=== PATIENT | male | born 1985 | race American Indian/Alaskan Native ===

== ENCOUNTER 2016-09-25 11:53 | Inpatient (IN) | payer OTHER ==
[2016-09-25 12:27] LABS: Basophils % (Auto) 0.7 % (0.0-1.8); Eosinophils % (Auto) 3.7 % (0.0-4.3); Hematocrit 41.2 % (35.5-45.6); Mean Corpuscular HGB Conc 34 % (32-34); Mean Corpuscular Hemoglobin 29 pg (28-32); Mean Corpuscular Volume 85 fl (84-94); Platelet Count 205 K/mm3 (140-440); Red Blood Count 4.84 M/mm3 (3.65-5.03); Red Cell Distribution Width 15.5 % (13.2-15.2); White Blood Count 4.4 K/mm3 (4.5-11.0)
[2016-09-25 13:00] LABS: Alanine Aminotransferase 36 units/L (7-56); Albumin 4.1 g/dL (3.9-5); Albumin/Globulin Ratio 1.3 %; Alkaline Phosphatase 63 units/L (35-129); Anion Gap 18 mmol/L; Blood Urea Nitrogen 9 mg/dL (9-20); Calcium 9.2 mg/dL (8.4-10.2); Carbon Dioxide 24 mmol/L (22-30); Chloride 102.2 mmol/L (98-107); Glucose 103 mg/dL (75-100); Potassium 3.9 mmol/L (3.6-5.0); Sodium 140 mmol/L (137-145); Total Protein 7.3 g/dL (6.3-8.2)
--- NOTE | 2016-09-25 13:06 | Cat Scan Report ---
CT HEAD WITHOUT CONTRAST: 09/25/16 11:53:00 CLINICAL: Syncope and weakness. TECHNIQUE: 2.5-mm noncontrast scans. COMPARISON:None FINDINGS: The ventricles and sulci are normal for age. 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 No mass or mass effect. No hemorrhage, edema or extra-axial collection. The sinuses are clear. Normal orbits and soft tissues. The calvarium and skull base are intact. IMPRESSION: No acute change. 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
[2016-09-25 13:47] LABS: Urine Drugs of Abuse Note Disclamer
[2016-09-25 13:55] LABS: Bilirubin,Urine NEG (Negative); Blood,Urine NEG (Negative); Ketones,Urine NEG (Negative); Leukocyte Esterase,Urine NEG (Negative); Nitrite,Urine NEG (Negative); Protein,Urine <15 mg/dL mg/dL (Negative)
--- NOTE | 2016-09-25 16:55 | History and Physical Report ---
History of Present Illness Chief complaint: I passed out in episcopal History of present illness: 30 YO Male with Obesity, presents to ED for evaluation. Pt states that he passed out. Witness states that the patient essentially "slithered down" at the doorway of their episcopal. EMS notified, and Pt found to be stuporous on exam. He was transported via EMS to [facility] for evaluation. Pt mother states that the patient had a similar such episode several years ago. She cannot quantify how long ago and it actually was. However she states that the patient was initially seen at [facility] in [place] and then transferred to the [facility] and admitted to the intensive care unit for some time. Mother states that pt had "3 baby strokes". Past History Past Medical History: stroke Past Surgical History: No surgical history, Other (reviewed) Social history: single, lives with family. denies: smoking, alcohol abuse, prescription drug abuse Family history: hypertension Medications and Allergies Allergies Allergy/AdvReac Type Severity Reaction Status Date / Time peanut Allergy Severe tightening Verified 09/26/16 08:43 of airway iodine Allergy Unknown Sob, Verified 09/26/16 08:43 tightening of airway Review of Systems All systems: negative Constitutional: other (syncope) Exam - Constitutional Vitals: Temp Pulse Resp BP Pulse Ox 98.4 F 60 21 141/88 100 09/25/16 14:45 09/25/16 14:45 09/25/16 14:45 09/25/16 14:45 09/25/16 14:45 General appearance: Present: mild distress, obese - EENT Eyes: Present: PERRL ENT: hearing intact, clear oral mucosa - Neck Neck: Present: supple, normal ROM - Respiratory Respiratory effort: normal Respiratory: bilateral: CTA - Cardiovascular Heart Sounds: Present: S1 & S2. Absent: rub, click - Extremities Extremities: pulses symmetrical, No edema Peripheral Pulses: within normal limits - Abdominal General gastrointestinal: Present: soft, non-tender, non-distended, normal bowel sounds Male genitourinary: Present: normal - Integumentary Integumentary: Present: clear, warm, dry - Musculoskeletal Musculoskeletal: gait normal, strength equal bilaterally - Psychiatric Psychiatric: appropriate mood/affect, intact judgment & insight - Neurologic Neurologic: CNII-XII intact, moves all extremities, other (lethargic on exam) Results - Labs CBC & Chem 7: 09/25/16 12:14 09/25/16 12:14 Labs: Abnormal lab results 09/25/16 09/25/16 Range/Units 12:14 12:14 WBC 4.4 L (4.5-11.0) K/mm3 RDW 15.5 H (13.2-15.2) % Glucose 103 H (75-100) mg/dL Assessment and Plan - Patient Problems (1) Syncope and collapse Current Visit: Yes Status: Acute Plan to address problem: Serial cardiac enzyme, ekg, telemetry, echo, supportive care. CArdiology consulted, (2) Obesity Current Visit: Yes Status: Acute Qualifiers: Obesity type: O Obesity severity: O Plan to address problem: Pt counsled regarding increased physical activity, balanced diet (3) HTN (hypertension) Current Visit: Yes Status: Acute Qualifiers: Hypertension type: H Plan to address problem: monitor bp q shift, continue current therapy (4) CVA (cerebral vascular accident) Current Visit: Yes Status: Resolved Qualifiers: CVA mechanism: C Precerebral and cerebral artery: P Laterality of affected vessel: L Plan to address problem: Records request from previous hospital. Pt family unsure of previous diagnosis. (5) Atypical chest pain Current Visit: Yes Status: Acute Plan to address problem: serial caridac enzymes, ekg, telemetry, cardiology consulted. (6) DVT prophylaxis Current Visit: Yes Status: Acute
--- NOTE | 2016-09-25 16:55 | History and Physical Report ---
Medications and Allergies Allergies Allergy/AdvReac Type Severity Reaction Status Date / Time No Known Allergies Allergy Unverified 09/25/16 12:04 Exam - Constitutional Vitals: Temp Pulse Resp BP Pulse Ox 98.4 F 60 21 141/88 100 09/25/16 14:45 09/25/16 14:45 09/25/16 14:45 09/25/16 14:45 09/25/16 14:45 Results - Labs CBC & Chem 7: 09/25/16 12:14 09/25/16 12:14 Labs: Abnormal lab results 09/25/16 09/25/16 Range/Units 12:14 12:14 WBC 4.4 L (4.5-11.0) K/mm3 RDW 15.5 H (13.2-15.2) % Glucose 103 H (75-100) mg/dL
[2016-09-25] MEDS ORDERED: DULCOLAX PR PRN (17:23)
[2016-09-25] MEDS ORDERED: ZOFRAN IV PRN (17:23)
[2016-09-25] MEDS ORDERED: DUONEB 0.5 MG-3 MG/3 ML SOLN IH PRN (17:23)
[2016-09-25] MEDS ORDERED: MILK OF MAGNESIA PO PRN (17:23)
[2016-09-25] MEDS ORDERED: SODIUM CHLORIDE FLUSH SYRINGE 10 ML IV PRN (17:23)
[2016-09-25] MEDS ORDERED: TYLENOL PO PRN (17:23)
[2016-09-25] MEDS ORDERED: PROVENTIL IH PRN (17:32)
[2016-09-25 17:34] LABS: Creatine Kinase MB 2.2 ng/mL (0.0-4.0)
--- NOTE | 2016-09-25 19:17 | Emergency Department Report ---
ED General Adult HPI - General Chief complaint: Syncope Stated complaint: DIZZINESS Time Seen by Provider: 09/25/16 15:18 Source: patient Mode of arrival: Wheelchair Limitations: No Limitations - History of Present Illness Initial comments: Patient was brought to this facility after an apparent syncopal episode. I am told by a non-direct witness I believe a family member that was not there that she was told that the patient essentially "slithered down" at the doorway of their [facility]ats[facility]. He was transported via EMS. Patient tells me that he doesn't remember passing out nor does she remember transport to this facility. I do not have the patient's prehospital care report at this time. However I was not notified of a patient who was obtunded and lethargic stuporous or transported to the facility with altered mental status. I'm surprised to hear that the patient recalls nothing concerning his transport until he arrived in the emergency department. In any case there was no witnessed seizure or shaking movement. Patient did not lose control of his bowels or bladder. He did not bite his tongue. He suffered no injury. Apparently at triage she did complain of some vague nonpleuritic left sided and nonradiating chest pain. Had resolved at the time of my encounter. Patient denied dyspnea sweating nausea or any other associated symptoms. He denied any focal neurological change. He appears to be a very poor historian. Patient's family member states that they [place] and have no primary care provider. She tells me that the patient had a similar such episode several years ago. She cannot quantify how long ago and it actually was. However she states that the patient was initially seen at [facility] in [place] and then transferred to the [facility]. She states that he was in the intensive care unit for some time. She states that he had "3 baby strokes". The patient is currently not on aspirin or any prescribed medication. The lady that is with the patient states that he appears to have some memory deficit chronically since his stroke. -: Gradual Location: chest Radiation: non-radiation Quality: aching Consistency: now resolved Improves with: none Worsens with: none Associated Symptoms: denies other symptoms Treatments Prior to Arrival: none - Related Data Allergies Allergy/AdvReac Type Severity Reaction Status Date / Time No Known Allergies Allergy Unverified 09/25/16 12:04 ED Review of Systems ROS: Stated complaint: DIZZINESS Other details as noted in HPI Constitutional: denies: chills, fever Eyes: denies: eye pain, eye discharge, vision change ENT: denies: ear pain, throat pain Respiratory: denies: cough, shortness of breath, wheezing Cardiovascular: chest pain, syncope. denies: palpitations Endocrine: no symptoms reported Gastrointestinal: denies: abdominal pain, nausea, diarrhea Genitourinary: denies: urgency, dysuria Musculoskeletal: denies: back pain, joint swelling, arthralgia Skin: denies: rash, lesions Neurological: denies: headache, weakness, paresthesias Psychiatric: denies: anxiety, depression Hematological/Lymphatic: denies: easy bleeding, easy bruising ED Past Medical Hx - Past Medical History Previous Medical History?: No Hx CVA: Yes (See above HPI) - Surgical History Past Surgical History?: No - Social History Smoking Status: Unknown if ever smoked Substance Use Type: None ED Physical Exam - General Limitations: No Limitations General appearance: alert, in no apparent distress - Head Head exam: Present: atraumatic, normocephalic - Eye Eye exam: Present: normal appearance. Absent: scleral icterus - ENT ENT exam: Present: normal exam, mucous membranes moist - Neck Neck exam: Present: normal inspection. Absent: tenderness, meningismus - Respiratory Respiratory exam: Present: normal lung sounds bilaterally. Absent: respiratory distress - Cardiovascular Cardiovascular Exam: Present: regular rate, normal rhythm. Absent: systolic murmur, diastolic murmur, rubs, gallop - GI/Abdominal GI/Abdominal exam: Present: soft, normal bowel sounds. Absent: distended, tenderness, guarding, rebound, rigid - Rectal Rectal exam: Present: deferred - Extremities Exam Extremities exam: Present: normal inspection - Back Exam Back exam: Present: normal inspection - Neurological Exam Neurological exam: Present: alert, oriented X3, CN II-XII intact. Absent: motor sensory deficit - Psychiatric Psychiatric exam: Present: normal affect, normal mood - Skin Skin exam: Present: warm, dry, intact, normal color. Absent: rash ED Course Vital Signs 09/25/16 09/25/16 09/25/16 11:58 14:45 17:53 Temperature 98.3 F 98.4 F Pulse Rate 79 60 Respiratory 18 21 16 Rate Blood Pressure 161/105 Blood Pressure 141/88 [Left] O2 Sat by Pulse 99 100 Oximetry - Reevaluation(s) Reevaluation #1: Patient has no dyspnea, no cough. Apparently he did have some vague chest pain. He had a syncopal episode or an absence episode of some sort. There is no indication of ACS or pulmonary embolism. I will leave the further workup of the patient's chest pain up to the hospital staff. Patient was admitted in stable condition for further evaluation. I found no evidence of CVA or any indication for thrombolytic. 09/25/16 19:24 ED Medical Decision Making - Lab Data Result diagrams: 09/25/16 12:14 09/25/16 12:14 - EKG Data -: EKG Interpreted by Me EKG shows normal: sinus rhythm, axis, intervals, QRS complexes, ST-T waves Rate: normal - EKG Data Interpretation: normal EKG - Radiology Data Radiology results: report reviewed Patient has negative cisterna magna which the radiologist states is an incidental finding. No acute finding. Critical care attestation.: If time is entered above; I have spent that time in minutes in the direct care of this critically ill patient, excluding procedure time. ED Disposition Clinical Impression: Atypical chest pain, Akhil cisterna magna Syncope Qualifiers: Syncope type: unspecified Qualified Code(s): R55 - Syncope and collapse Disposition: - OP ADMIT IP TO THIS HOSP Is pt being admited?: Yes Does the pt Need Aspirin: Yes Condition: Stable Instructions: Syncope (ED), Chest Pain (ED) Referrals: PRIMARY CARE, [Primary Care Provider] - 3-5 Days Time of Disposition: 19:28
--- NOTE | 2016-09-25 20:11 | XRay Report ---
FINAL REPORT EXAM: XR CHEST 1V AP HISTORY: hypertension COMPARISON: None available. FINDINGS: Frontal view(s) of the chest obtained. Heart upper limits normal in size and accentuated by AP technique and shallow inspiration. No gross consolidation or effusion. No pneumothorax. IMPRESSION: Heart upper limits normal in size. Lungs are grossly clear.
[2016-09-25 23:01] LABS: Creatine Kinase MB 4.7 ng/mL (0.0-4.0)
[2016-09-25 23:02] LABS: Creatine Kinase 662 units/L (55-170)
[2016-09-25] MEDS ORDERED: MORPHINE IV PRN ×2 (23:49→23:58)
[2016-09-25 23:58] LABS: Creatine Kinase MB 1.7 ng/mL (0.0-4.0)
[2016-09-26 00:01] LABS: Creatine Kinase 242 units/L (55-170)
--- NOTE | 2016-09-26 13:09 | Consultation ---
<OMAR BRADY - Last Filed: 09/26/16 13:04> History of Present Illness Consult date: 09/26/16 Consult reason: syncope History of present illness: This is a 30yr old admitted with syncope. Patient reports he felt dizzy when walking and when he came to himself he was in the ER. While in the ER, patient complained on chest pain, fatigue and continued dizziness. No acute findings on his presenting ECG. Head CT reports tangela cisterna magna but no acute findings. Cardiology consultation requested for further evaluation. Past History Past Surgical History: No surgical history Social history: single, lives with family. denies: smoking, alcohol abuse, prescription drug abuse Family history: hypertension Medications and Allergies Allergies Allergy/AdvReac Type Severity Reaction Status Date / Time peanut Allergy Severe tightening Verified 09/26/16 08:43 of airway iodine Allergy Unknown Sob, Verified 09/26/16 08:43 tightening of airway Active Meds: Active Medications Acetaminophen (Tylenol) 650 mg PO Q4H PRN PRN Reason: Pain MILD(1-3)/Fever >100.5/PHILLIPS Last Admin: 09/25/16 17:53 Dose: 650 mg Albuterol (Proventil) 2.5 mg IH Q4HRT PRN PRN Reason: Shortness Of Breath Bisacodyl (Dulcolax) 10 mg [place] QDAY PRN PRN Reason: Constipation unrelieved by MOM Magnesium Hydroxide (Milk Of Magnesia) 30 ml PO Q4H PRN PRN Reason: Constipation Morphine Sulfate (Morphine) 2 mg IV Q4H PRN PRN Reason: Pain, Moderate (4-6) Last Admin: 09/26/16 00:19 Dose: 2 mg Ondansetron HCl (Zofran) 4 mg IV Q8H PRN PRN Reason: N/V unrelieved by Reglan Sodium Chloride (Sodium Chloride Flush Syringe 10 Ml) 10 ml IV PRN PRN PRN Reason: LINE FLUSH Physical Examination Vital Signs Temp Pulse Resp BP Pulse Ox 98.3 F 79 18 161/105 99 09/25/16 11:58 09/25/16 11:58 09/25/16 11:58 09/25/16 11:58 09/25/16 11:58 General appearance: no acute distress HEENT: Positive: PERRL Neck: Positive: trachea midline Cardiac: Positive: Reg Rate and Rhythm Results 09/25/16 12:14 09/25/16 12:14 Cardiac Enzymes 09/25/16 09/25/16 Range/Units 21:40 23:21 CK-MB (CK-2) 4.7 H 1.7 (0.0-4.0) ng/mL Lipids 09/25/16 Range/Units Unknown Triglycerides 124 (2-149) mg/dL Cholesterol 136 (50-199) mg/dL HDL Cholesterol 33 L (40-59) mg/dL Cholesterol/HDL Ratio 4.12 % Assessment and Plan Syncope Plan: Echocardiogram for LVEF assessment. Check a TSH, free T4. <IKE LARA - Last Filed: 09/26/16 16:13> Medications and Allergies Active Meds: Active Medications Acetaminophen (Tylenol) 650 mg PO Q4H PRN PRN Reason: Pain MILD(1-3)/Fever >100.5/PHILLIPS Last Admin: 09/25/16 17:53 Dose: 650 mg Albuterol (Proventil) 2.5 mg IH Q4HRT PRN PRN Reason: Shortness Of Breath Bisacodyl (Dulcolax) 10 mg [place] QDAY PRN PRN Reason: Constipation unrelieved by MOM Magnesium Hydroxide (Milk Of Magnesia) 30 ml PO Q4H PRN PRN Reason: Constipation Morphine Sulfate (Morphine) 2 mg IV Q4H PRN PRN Reason: Pain, Moderate (4-6) Last Admin: 09/26/16 00:19 Dose: 2 mg Ondansetron HCl (Zofran) 4 mg IV Q8H PRN PRN Reason: N/V unrelieved by Reglan Sodium Chloride (Sodium Chloride Flush Syringe 10 Ml) 10 ml IV PRN PRN PRN Reason: LINE FLUSH Physical Examination Vital Signs Temp Pulse Resp BP Pulse Ox 98.3 F 79 18 161/105 99 09/25/16 11:58 09/25/16 11:58 09/25/16 11:58 09/25/16 11:58 09/25/16 11:58 Results 09/25/16 12:14 09/25/16 12:14 Cardiac Enzymes 09/25/16 09/25/16 Range/Units 21:40 23:21 CK-MB (CK-2) 4.7 H 1.7 (0.0-4.0) ng/mL Lipids 09/25/16 Range/Units Unknown Triglycerides 124 (2-149) mg/dL Cholesterol 136 (50-199) mg/dL HDL Cholesterol 33 L (40-59) mg/dL Cholesterol/HDL Ratio 4.12 % Assessment and Plan No significant abnormality on labs EKG shows normal sinus rhythm with nonspecific STTW changes Telemetry shows sinus rhythm Neurology consult pending.
--- NOTE | 2016-09-26 13:38 | Admit Criteria Form ---
Admission Criteria Documentation: SYNCOPE Clinical Indications for Admission to Inpatient Care ( Place 'X' for any and all applicable criteria): Admission is indicated for syncope and ANY ONE of the following (1)(2)(3)(4)(5) (6)(7) : [X]I. Inpatient admission required rather than observation care (Also use Syncope: Observation Care Criteria as appropriate) because of ANY ONE of the following: [ ]a) Hemodynamic instability that is severe or persistent [ ]b) Cardiac arrhythmias of immediate concern identified or strongly suspected (eg, needs electrophysiologic study) [ ]c) Acute coronary syndrome identified (Also use Myocardial Infarction or Angina Criteria form ) [ ]d) Structural cardiac disorder (eg, aortic stenosis) suspected as cause that requires immediate correction [ ]e) Respiratory symptoms (eg, dyspnea, tachypnea) that are severe or persistent [ ]f) Neurologic signs or symptoms that are severe or persistent ( eg, stroke, seizures, altered mental status) [ ]g) Severe electrolyte abnormalities requiring inpatient care [ ]h) Supplemental oxygen or respiratory treatment for over 24 hrs that are performable only in acute inpatient setting [ ]i) IV fluid to replace significant ongoing (eg, for over 24 hrs ) losses (>3 L/m2 per day) [ ]j) Continuous intravenous infusion of anticoagulation, platelet inhibitor, vasoactive, or antiarrhythmic medication(15)(16) [ ]k) Pulmonary artery catheter monitoring [ ]l) Temporary pacemaker placement(17) [ ]m) Emergent cardioversion(18) [X]n) Other conditions, treatment or monitoring requiring inpatient admission [ ]II. Suspicion of imminently dangerous cause (eg, rare causes like pericardial tamponade, pulmonary embolism) [ ]III. Syncope causing severe injury requiring hospitalization Extended stay beyond goal length of stay may be needed for(28) [ ]a) Dangerous arrhythmia(15)(23)(27)(29) [ ]b) Myocardial ischemia [ ]c) Seizure disorder [ ]d) Syncope-related injuries The original [employer] content created by [employer] has been revised. The portions of the content which have been revised are identified through the use of italic text or in bold, and [employer] has neither reviewed nor approved the modified material. All other unmodified content is copyright [employer] [facility]. Please see references footnoted in the original [facility] edition 2016 Admission Criteria Met: Yes
--- NOTE | 2016-09-26 14:56 | Consultation ---
History of Present Illness Consult date: 09/26/16 Requesting physician: VIRGEN CALVO Reason for Consult: syncope Chief complaint: passed out History of present illness: 30 YO M Hx several years ago according to mother as documented of "3 baby strokes" w/ residual memory difficulty that pt did not reflect upon not on AP/ statin as he is on no meds @ home who had syncopal episode 09/25. He felt lightheaded and faint and when he stood to get some air, he lost consciosuness. Pt denies tongue bite/incontinence/prolonged confusion or focal numbness/ tingling/weakness or inability to speak when returned to consciousness. There were no clear aggravating, relieving or temporal factors. Severity is such to cause LOC. Pt feels @ his baseline. ] Past History Past Medical History: stroke Past Surgical History: No surgical history Social history: single, lives with family. denies: smoking, alcohol abuse, prescription drug abuse Family history: hypertension Medications and Allergies Allergies Allergy/AdvReac Type Severity Reaction Status Date / Time peanut Allergy Severe tightening Verified 09/26/16 08:43 of airway iodine Allergy Unknown Sob, Verified 09/26/16 08:43 tightening of airway Active Meds: Active Medications Acetaminophen (Tylenol) 650 mg PO Q4H PRN PRN Reason: Pain MILD(1-3)/Fever >100.5/PHILLIPS Last Admin: 09/25/16 17:53 Dose: 650 mg Albuterol (Proventil) 2.5 mg IH Q4HRT PRN PRN Reason: Shortness Of Breath Bisacodyl (Dulcolax) 10 mg [place] QDAY PRN PRN Reason: Constipation unrelieved by MOM Magnesium Hydroxide (Milk Of Magnesia) 30 ml PO Q4H PRN PRN Reason: Constipation Morphine Sulfate (Morphine) 2 mg IV Q4H PRN PRN Reason: Pain, Moderate (4-6) Last Admin: 09/26/16 00:19 Dose: 2 mg Ondansetron HCl (Zofran) 4 mg IV Q8H PRN PRN Reason: N/V unrelieved by Reglan Sodium Chloride (Sodium Chloride Flush Syringe 10 Ml) 10 ml IV PRN PRN PRN Reason: LINE FLUSH Review of Systems All systems: negative Neurological: syncope, confusion (resolved), no paralysis, no weakness, no parathesias, no numbness, no seizures, no headaches, no convulsions, no change in speech, no gait dysfunction, no motor disturbance, no sensory deficit Physical Examination - Vital Signs Vital Signs: Vital Signs Temp Pulse Resp BP Pulse Ox 98.3 F 79 18 161/105 99 09/25/16 11:58 09/25/16 11:58 09/25/16 11:58 09/25/16 11:58 09/25/16 11:58 - Constitutional General appearance: comfortable - EENT EENT: Present: ATNC, PERRL, mucous membranes moist, hearing intact, vision intact - Respiratory Respiratory: Present: chest non-tender, normal breath sounds, no respiratory distress - Cardiovascular Cardiovascular: Present: regular rate Extremities: Present: no peripheral edema bilatateraly, no clubbing, cyanosis, no inflammation, no ischemia or petechiae - Gastrointestinal Gastrointestinal: Present: normoactive bowel sounds, soft, non-distended - Integumentary Integumentary: Present: normal - Neurologic Cranial nerve examination: PERRL, EOMI, VFF, V1/V2/V3 grossly intact, face symmetric, tongue midline, intact, intact shoulder shrug, Intact Vestibulo- ocular r, intact corneal reflex, normal palatal elevation Speech examination: intact Sensorimotor examination: intact Motor examination - right side: 5/5: biceps, triceps, wrist flexion, wrist extension, shipping clerk packing, hip flexors, knee extensors, dorsiflexion, toe extension (EHL) , plantarflexion Motor examination - left side: 5/5: biceps, triceps, wrist flexion, wrist extension, shipping clerk packing, hip flexors, knee extensors, dorsiflexion, toe extension (EHL) , plantarflexion Detailed sensory examination: intact, light touch, temperature Reflex and gait examination: intact Reflexes: 2+: ankle, bicep, knee, tricep - Musculoskeletal Musculoskeletal: Present: no fluid collection, no pain, normal range of motion - Psychiatric Psychiatric: Present: mood/affect appropriate, cooperative Results - Laboratory Findings CBC and BMP: 09/25/16 12:14 09/25/16 12:14 Abnormal Lab Findings: Abnormal Labs 09/25/16 09/25/16 09/25/16 21:40 23:21 Unknown Total Creatine Kinase 662 H 242 H CK-MB (CK-2) 4.7 H HDL Cholesterol 33 L Assessment and Plan 30 YO M Hx several years ago according to mother as documented of "3 baby strokes" w/ residual memory difficulty that pt did not reflect upon not on AP/ statin who p/w classic pre monitory presyncopal syndrome followed by LOC when he arose from seated position and w/o premonitory epileptiform activity e.g aura /automatism, tongue bite, incontinence, motor convulsive activity or clear post episode residual deficit e.g. post ictal state to suggest seizure. Current neuro exam is normal fully intact w/o deficits/focality. I suspect orthostatic syncope. CTH neg. There is no subjective or objective evidence to suggest seizure. Plan and Recommendation: 1. Telemetry bed w/ Q4 hour neuro checks 2. WIll obtain MRI Brain +/- Shola and MRA head to assess considering prior Hx 3. Labs: Serum/Urine Tox, UA/UCx, Electrolytes especially Na, Ca, Mg, and Glucose, TSH, 4. AED therapy: No clear indication for AED therapy 5. Orthostatic vital signs 6. Conservative management e.g. tapering of BP meds, Myron Hose, encourage PO intake, etc 7. With seemingly clear etiology for syncope there is no clear grounds for driving privilege withdrawal @ this time. However for future reference I have advised Pt of [place] driving regulations: report date of presumed Seizure/ unexplained loss of consciousness/awareness spell to DMV, refrain from operating a motor vehicle for 6 months after this date, and avoid unsupervised activity particularly around water or heights
--- NOTE | 2016-09-26 16:03 | Progress Note ---
Assessment and Plan Assessment and plan: 30-year-old -[place] male presented to the emergency department after syncopal episode, that happened when he arose from a sitting position. Patient has history of syncopal episode as a child. Per chart review his mother claimed he has 3 strokes as a child and after that he has memory problems. Patient is not on any medications. Syncope, disequilibrium; Vasovagal versus orthostatic - We'll do orthostatic vital signs - CT head was negative for acute intracranial process - Neurology was consulted and recommended MRI/MRA head - Cardiology consulted and recommended echo DVT prophylaxis Lovenox Disposition Likely tomorrow after he finished his work work up. History Interval history: Patient was seen and evaluated this morning, patient denied loss of consciousness or any seizure activity after admission. Hospitalist Physical - Physical exam Narrative exam: Not in cardiopulmonary distress. The patient appeared well nourished and normally developed. Vital signs as documented. Head exam is unremarkable. No scleral icterus . Neck is without jugular venous distension, thyromegaly, or carotid bruits. Lungs are clear to auscultation. Cardiac exam reveals regular rate and Rhythm. First and second heart sounds normal. No murmurs, rubs or gallops. Abdominal exam reveals normal bowel sounds, no masses, no organomegaly and no aortic enlargement. Extremities are nonedematous and both femoral and pedal pulses are normal. SET BUILDER: Alert and oriented 3. No focal weakness. - Constitutional Vitals: Temp Pulse Resp BP Pulse Ox 97.8 F 66 18 140/81 96 09/26/16 12:50 09/26/16 12:50 09/26/16 12:50 09/26/16 12:50 09/26/16 05:23 General appearance: Present: no acute distress Results - Labs CBC & Chem 7: 09/25/16 12:14 09/25/16 12:14 Labs: Laboratory Last Values WBC 4.4 K/mm3 (4.5-11.0) L 09/25/16 12:14 RBC 4.84 M/mm3 (3.65-5.03) 09/25/16 12:14 Hgb 14.0 gm/dl (11.8-15.2) 09/25/16 12:14 Hct 41.2 % (35.5-45.6) 09/25/16 12:14 MCV 85 fl (84-94) 09/25/16 12:14 MCH 29 pg (28-32) 09/25/16 12:14 MCHC 34 % (32-34) 09/25/16 12:14 RDW 15.5 % (13.2-15.2) H 09/25/16 12:14 Plt Count 205 K/mm3 (140-440) 09/25/16 12:14 Lymph % (Auto) 33.4 % (13.4-35.0) 09/25/16 12:14 Fergus % (Auto) 7.3 % (0.0-7.3) 09/25/16 12:14 Eos % (Auto) 3.7 % (0.0-4.3) 09/25/16 12:14 Baso % (Auto) 0.7 % (0.0-1.8) 09/25/16 12:14 Lymph # 1.5 K/mm3 (1.2-5.4) 09/25/16 12:14 Fergus # 0.3 K/mm3 (0.0-0.8) 09/25/16 12:14 Eos # 0.2 K/mm3 (0.0-0.4) 09/25/16 12:14 Baso # 0.0 K/mm3 (0.0-0.1) 09/25/16 12:14 Seg Neutrophils % 54.9 % (40.0-70.0) 09/25/16 12:14 Seg Neutrophils # 2.4 K/mm3 (1.8-7.7) 09/25/16 12:14 Sodium 140 mmol/L (137-145) 09/25/16 12:14 Potassium 3.9 mmol/L (3.6-5.0) 09/25/16 12:14 Chloride 102.2 mmol/L (98-107) 09/25/16 12:14 Carbon Dioxide 24 mmol/L (22-30) 09/25/16 12:14 Anion Gap 18 mmol/L 09/25/16 12:14 BUN 9 mg/dL (9-20) 09/25/16 12:14 Creatinine 1.0 mg/dL (0.8-1.5) 09/25/16 12:14 Estimated GFR > 60 ml/min 09/25/16 12:14 BUN/Creatinine Ratio 9.00 % 09/25/16 12:14 Glucose 103 mg/dL (75-100) H 09/25/16 12:14 POC Glucose 106 (70-105) H 09/25/16 12:08 Lactic Acid 0.80 mmol/L (0.7-2.0) 09/25/16 14:49 Calcium 9.2 mg/dL (8.4-10.2) 09/25/16 12:14 Magnesium 1.70 mg/dL (1.7-2.3) 09/25/16 12:14 Total Bilirubin 0.40 mg/dL (0.1-1.2) 09/25/16 12:14 AST 25 units/L (5-40) 09/25/16 12:14 ALT 36 units/L (7-56) 09/25/16 12:14 Alkaline Phosphatase 63 units/L (35-129) 09/25/16 12:14 Total Creatine Kinase 242 units/L (55-170) H 09/25/16 23:21 CK-MB (CK-2) 1.7 ng/mL (0.0-4.0) 09/25/16 23:21 CK-MB (CK-2) Rel Index 0.7 (0-4) 09/25/16 23:21 Troponin T < 0.010 ng/mL (0.00-0.029) 09/25/16 23:21 Total Protein 7.3 g/dL (6.3-8.2) 09/25/16 12:14 Albumin 4.1 g/dL (3.9-5) 09/25/16 12:14 Albumin/Globulin Ratio 1.3 % 09/25/16 12:14 Triglycerides 124 mg/dL (2-149) 09/25/16 Unknown Cholesterol 136 mg/dL (50-199) 09/25/16 Unknown LDL Cholesterol Direct 79 mg/dL (50-130) 09/25/16 Unknown HDL Cholesterol 33 mg/dL (40-59) L 09/25/16 Unknown Cholesterol/HDL Ratio 4.12 % 09/25/16 Unknown Urine Color Yellow (Yellow) 09/25/16 13:36 Urine Turbidity Clear (Clear) 09/25/16 13:36 Urine pH 6.0 (5.0-7.0) 09/25/16 13:36 Ur Specific Chandler 1.015 (1.003-1.030) 09/25/16 13:36 Urine Protein <15 mg/dl mg/dL (Negative) 09/25/16 13:36 Urine Glucose (UA) Neg mg/dL (Negative) 09/25/16 13:36 Urine Ketones Neg mg/dL (Negative) 09/25/16 13:36 Urine Blood Neg (Negative) 09/25/16 13:36 Urine Nitrite Neg (Negative) 09/25/16 13:36 Urine Bilirubin Neg (Negative) 09/25/16 13:36 Urine Urobilinogen 2.0 mg/dL (<2.0) 09/25/16 13:36 Ur Leukocyte Esterase Neg (Negative) 09/25/16 13:36 Urine WBC (Auto) 1.0 /HPF (0.0-6.0) 09/25/16 13:36 Urine RBC (Auto) 4.0 /HPF (0.0-6.0) 09/25/16 13:36 Hyaline Casts 1 /LPF 09/25/16 13:36 Urine Opiates Screen Presumptive negative 09/25/16 13:36 Urine Methadone Screen Presumptive negative 09/25/16 13:36 Ur Barbiturates Screen Presumptive negative 09/25/16 13:36 Ur Phencyclidine Scrn Presumptive negative 09/25/16 13:36 Ur Amphetamines Screen Presumptive negative 09/25/16 13:36 U Benzodiazepines Scrn Presumptive negative 09/25/16 13:36 Urine Cocaine Screen Presumptive negative 09/25/16 13:36 U Marijuana (THC) Screen Presumptive negative 09/25/16 13:36 Drugs of Abuse Note Disclamer 09/25/16 13:36 - Imaging and Cardiology CT Scan - head: report reviewed (No no acute intracranial abnormality), image reviewed
[2016-09-26] MEDS ORDERED: LOVENOX SUB-Q SCH (22:00)
[2016-09-27 08:36] LABS: Anion Gap 15 mmol/L; BUN/Creatinine Ratio 9.16; Blood Urea Nitrogen 11 mg/dL (9-20); Carbon Dioxide 28 mmol/L (22-30); Chloride 99.5 mmol/L (98-107); Glucose 100 mg/dL (75-100); Potassium 3.8 mmol/L (3.6-5.0); Sodium 139 mmol/L (137-145)
[2016-09-27 08:58] VITALS: BP 132/80
--- NOTE | 2016-09-27 10:27 | Progress Note ---
Assessment and Plan Syncope LVEF 50-55% No arrhythmias on tele recorded Normal ECG Normal Dominique Recommendations: No further cardiac work-up needed May go home and follow-up as outpatient Subjective Date of service: 09/27/16 Principal diagnosis: Syncope Interval history: No events overnight. Patient denies chest pain or shortness of breath. No events on tele. He is able to ambulate without difficulty Objective Vital Signs Temp Pulse Pulse Pulse Resp BP Pulse Ox 09/27/16 09:37 99 09/27/16 08:57 98.4 F 64 64 20 132/80 09/27/16 07:29 18 09/27/16 06:03 98.1 F 0 L 61 20 122/67 99 09/27/16 05:40 61 09/27/16 00:56 98.2 F 0 L 60 20 133/78 100 09/26/16 21:20 99 09/26/16 21:05 98.8 F 0 L 65 20 143/84 98 09/26/16 16:57 98.5 F 67 18 137/90 09/26/16 12:50 97.8 F 66 18 140/81 - Physical Examination HEENT: Positive: PERRL Neck: Positive: trachea midline Cardiac: Positive: Reg Rate and Rhythm Lungs: Positive: Normal Exam - Labs and Meds Comprehensive Metabolic Panel 09/27/16 Range/Units 06:49 Sodium 139 (137-145) mmol/L Potassium 3.8 (3.6-5.0) mmol/L Chloride 99.5 (98-107) mmol/L Carbon Dioxide 28 (22-30) mmol/L BUN 11 (9-20) mg/dL Creatinine 1.2 (0.8-1.5) mg/dL Glucose 100 (75-100) mg/dL Calcium 9.0 (8.4-10.2) mg/dL
--- NOTE | 2016-09-27 12:26 | Magnetic Resonance Report ---
MRI of the brain with and without contrast. History: Loss of consciousness. Procedure: Routine brain protocol with and without contrast. Findings: The cisterna magna is enlarged. The posterior fossa is otherwise normal. The ventricles are normal in size and contour. There are no masses or extra-axial collections. The hansen-white matter junction is normal. There is no restricted diffusion. After gadolinium injection, there no abnormal areas of contrast enhancement. The pituitary gland is normal. The visualized extracranial structures are unremarkable. Impression: No significant findings. Akhil-cisterna magna is noted.
--- NOTE | 2016-09-27 12:27 | Magnetic Resonance Report ---
MRA of the [place] of [place]. History: Syncope. Procedure: 3-D [id number] technique. Findings: The visualized distal internal carotid arteries are normal. The anterior and middle cerebral arteries and branches are unremarkable. The right vertebral artery is dominant. The basilar artery and posterior cerebral's are unremarkable. Impression: Normal study.
--- NOTE | 2016-09-27 12:44 | Event Note ---
Date: 09/27/16 MRI Brain and MRA Head reviewed and normal. 30 YO M Hx several years ago according to mother as documented of "3 baby strokes" w/ residual memory difficulty that pt did not reflect upon not on AP/ statin who p/w classic pre monitory presyncopal syndrome followed by LOC when he arose from seated position and w/o premonitory epileptiform activity e.g aura /automatism, tongue bite, incontinence, motor convulsive activity or clear post episode residual deficit e.g. post ictal state to suggest seizure. Current neuro exam is normal fully intact w/o deficits/focality. I suspect orthostatic syncope. CTH neg. There is no subjective or objective evidence to suggest seizure. Plan and Recommendation: 1. Telemetry bed w/ Q4 hour neuro checks 2. Labs: Serum/Urine Tox, UA/UCx, Electrolytes especially Na, Ca, Mg, and Glucose, TSH, 3. AED therapy: No clear indication for AED therapy 4. Orthostatic vital signs 5. Conservative management e.g. tapering of BP meds, Myron Hose, encourage PO intake, etc 6. With seemingly clear etiology for syncope there is no clear grounds for driving privilege withdrawal @ this time. However for future reference I have advised Pt of [place] driving regulations: report date of presumed Seizure/ unexplained loss of consciousness/awareness spell to [facility], refrain from operating a motor vehicle for 6 months after this date, and avoid unsupervised activity particularly around water or heights 7. Neuro clear for D/C if remains stable.
--- NOTE | 2016-09-27 13:06 | Discharge Summary ---
Providers - Providers Date of Admission: 09/25/16 17:24 Date of discharge: 09/27/16 Attending physician: GARY ACEVES MD 09/25/16 17:27 Consult to Physician [CONS] Routine Consulting Provider: ISIAH HOWARD Reason For Exam: syncope Place consult to:: cardiology Notified:: [facility] office Phone number called:: Office Was contact made?: Yes If yes, spoke with:: Paging service Time called:: 07:30 09/26/16 08:32 Consult to Physician [CONS] Routine Consulting Provider: HILDA CLEMENS Reason For Exam: syncope Place consult to:: Dr. Clemens Notified:: Adilene RN Phone number called:: [phone] Was contact made?: Yes If yes, spoke with:: Voicemail with consult info left for Fernanda Aguilar Time called:: 08:49 Primary care physician: [facility] Hospitalization Reason for admission: Syncope Condition: Stable Disposition: DC-01 TO HOME OR SELFCARE Time spent for discharge: 31 minutes - Discharge Diagnoses (1) Atypical chest pain Status: Acute (2) HTN (hypertension) Status: Acute Qualifiers: Hypertension type: H (3) Akhil cisterna magna Status: Acute (4) Syncope and collapse Status: Acute Core Measure Documentation - Palliative Care Palliative Care/ Comfort Measures: Not Applicable - Core Measures Any of the following diagnoses?: none Exam - Physical Exam Narrative exam: Not in cardiopulmonary distress. The patient appeared well nourished and normally developed. Vital signs as documented. Head exam is unremarkable. No scleral icterus . Neck is without jugular venous distension, thyromegaly, or carotid bruits. Lungs are clear to auscultation. Cardiac exam reveals regular rate and Rhythm. First and second heart sounds normal. No murmurs, rubs or gallops. Abdominal exam reveals normal bowel sounds, no masses, no organomegaly and no aortic enlargement. Extremities are nonedematous and both femoral and pedal pulses are normal. TEST DESKMAN: Alert and oriented 3. No focal weakness. - Constitutional Vitals: Temp Pulse Resp BP Pulse Ox 98.4 F 64 20 132/80 99 09/27/16 08:57 09/27/16 08:57 09/27/16 08:57 09/27/16 08:57 09/27/16 09:37 Plan Activity: no restrictions Diet: regular Follow up with: PRIMARY CARE, [Primary Care Provider] - 3-5 Days
== END 2016-09-27 02:40 | disposition home or self-care (01) | DRG 312 ==
LOC: ED 11:53 → 4A 17:24
PROVIDERS: ADMIT Internal Medicine; ATTEND Internal Medicine
DX: R55 Syncope and collapse (principal); R07.89 Other chest pain; E66.9 Obesity, unspecified; I10 Essential (primary) hypertension; R93.0 Abnormal findings on diagnostic imaging of skull and head, not elsewhere classified; Z88.8 Allergy status to other drugs, medicaments and biological substances; Z91.010 Allergy to peanuts; Z68.35 Body mass index [BMI] 35.0-35.9, adult; Z82.49 Family history of ischemic heart disease and other diseases of the circulatory system
CPT/HCPCS: 36415; 70450; 70544; 70553; 71010; 80048; 80053; 80061; 80307; 81001; 82140; 82550; 82553; 82962; 83735; 84439; 84443; 84484; 85025; 93005; 93010; 93306; 99406; A9577; J1650; J2270

== ENCOUNTER 2017-03-12 09:43 | Emergency (ER) | payer MEDICAID ==
[2017-03-12 10:05] VITALS: BP 151/97
[2017-03-12] MEDS ORDERED: TORADOL IM ONE (11:06)
--- NOTE | 2017-03-12 11:19 | Emergency Department Report ---
ED Back Pain/Injury HPI - General Chief Complaint: Back Pain/Injury Stated Complaint: BACK PAIN Time Seen by Provider: 03/12/17 11:05 Source: patient Limitations: No Limitations - History of Present Illness Initial Comments: This is a 31-year-old male nontoxic, well nourished in appearance, no acute signs of distress presents to the ED with c/o of chronic intermittent back pain. 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 Patient denies any trauma to the region. Patient denies ay dysuria, polyuria, fever, chills, headache, nausea, vomiting, stiff neck, blurry vision, numbness, bladder or bowel instability, tingling. Patient stated allergies to peanut and iodine. PMH includes CVA, and HTN. MD Complaint: back pain -: month(s) (1) Similar Symptoms Previously: Yes Place: work Radiation: none Severity: mild Severity scale (0 -10): 8 Quality: aching Consistency: intermittent Improves With: supine, sitting upright Worsens With: movement Context: while lifting, turning/twisting Associated Symptoms: denies other symptoms. denies: confusion, weakness, chest pain, numbness, difficulty walking, cough, difficulty urinating, diaphoresis, incontinence, fever/chills, constipation, headaches, abdominal pain, loss of appetite, malaise, nausea/vomiting, rash, seizure, shortness of breath, syncope - Related Data Previous Rx's Medication Instructions Recorded Last Taken Type Azithromycin [Zithromax Z-CK] 1 dose PO DAILY 5 Days tab 02/04/17 Unknown Rx Benzonatate [Tessalon Perles] 100 mg PO Q8HR #30 capsule 02/04/17 Unknown Rx Ibuprofen [Motrin] 800 mg PO Q8HR PRN #30 tablet 02/04/17 Unknown Rx traMADol [Ultram 50 MG tab] 50 mg PO Q6HR PRN #20 tablet 02/04/17 Unknown Rx Cyclobenzaprine [Flexeril] 10 mg PO QHS PRN #5 tablet 03/12/17 Unknown Rx Ibuprofen [Motrin] 600 mg PO Q8H PRN #30 tablet 03/12/17 Unknown Rx Allergies Allergy/AdvReac Type Severity Reaction Status Date / Time peanut Allergy Severe tightening Verified 02/04/17 11:31 of airway iodine Allergy Unknown Sob, Verified 02/04/17 11:31 tightening of airway ED Review of Systems ROS: Stated complaint: BACK PAIN Other details as noted in HPI Constitutional: denies: chills, fever Eyes: denies: eye pain, eye discharge, vision change ENT: denies: ear pain, throat pain Respiratory: denies: cough, shortness of breath, wheezing Cardiovascular: denies: chest pain, palpitations Endocrine: no symptoms reported Gastrointestinal: denies: abdominal pain, nausea, diarrhea Genitourinary: denies: urgency, dysuria Musculoskeletal: back pain. denies: joint swelling, arthralgia Skin: denies: rash, lesions Neurological: denies: headache, weakness, paresthesias Psychiatric: denies: anxiety, depression Hematological/Lymphatic: denies: easy bleeding, easy bruising ED Past Medical Hx - Past Medical History Previous Medical History?: Yes Hx Hypertension: Yes Hx CVA: Yes (See above HPI) Hx Congestive Heart Failure: No Hx Diabetes: No Hx Asthma: No Hx COPD: No - Surgical History Past Surgical History?: No - Social History Smoking Status: Former Smoker Substance Use Type: Alcohol - Medications Home Medications: Home Medications Medication Instructions Recorded Confirmed Last Taken Type Azithromycin [Zithromax Z-CK] 1 dose PO DAILY 5 Days tab 02/04/17 Unknown Rx Benzonatate [Tessalon Perles] 100 mg PO Q8HR #30 capsule 02/04/17 Unknown Rx Ibuprofen [Motrin] 800 mg PO Q8HR PRN #30 tablet 02/04/17 Unknown Rx traMADol [Ultram 50 MG tab] 50 mg PO Q6HR PRN #20 tablet 02/04/17 Unknown Rx Cyclobenzaprine [Flexeril] 10 mg PO QHS PRN #5 tablet 03/12/17 Unknown Rx Ibuprofen [Motrin] 600 mg PO Q8H PRN #30 tablet 03/12/17 Unknown Rx ED Physical Exam - General Limitations: No Limitations General appearance: alert, in no apparent distress - Head Head exam: Present: atraumatic, normocephalic, normal inspection - Eye Eye exam: Present: normal appearance, PERRL, EOMI. Absent: scleral icterus, conjunctival injection, nystagmus, periorbital swelling, periorbital tenderness Pupils: Present: normal accommodation - ENT ENT exam: Present: normal exam, normal orophraynx, mucous membranes moist, TM's normal bilaterally, normal external ear exam - Neck Neck exam: Present: normal inspection, full ROM. Absent: tenderness, meningismus, lymphadenopathy, thyromegaly - Respiratory Respiratory exam: Present: normal lung sounds bilaterally. Absent: respiratory distress, wheezes, rales, rhonchi, stridor, chest wall tenderness, accessory muscle use, decreased breath sounds, prolonged expiratory - Cardiovascular Cardiovascular Exam: Present: regular rate, normal rhythm, normal heart sounds. Absent: bradycardia, tachycardia, irregular rhythm, systolic murmur, diastolic murmur, rubs, gallop - GI/Abdominal GI/Abdominal exam: Present: soft, normal bowel sounds. Absent: distended, tenderness, guarding, rebound, rigid, diminished bowel sounds - Rectal Rectal exam: Present: deferred - Extremities Exam Extremities exam: Present: normal inspection, full ROM, normal capillary refill. Absent: tenderness, pedal edema, joint swelling, calf tenderness - Back Exam Back exam: Present: normal inspection, full ROM, paraspinal tenderness (lumbar region). Absent: tenderness, CVA tenderness (L), muscle spasm, vertebral tenderness, rash noted - Expanded Back Exam Expanded Back exam: Present: normal rectal tone (as per patient). Absent: saddle anesthesia Back exam: Negative Straight Leg Raising: Left, Right - Neurological Exam Neurological exam: Present: alert, oriented X3, CN II-XII intact, normal gait, reflexes normal - Psychiatric Psychiatric exam: Present: normal affect, normal mood - Skin Skin exam: Present: warm, dry, intact, normal color. Absent: rash ED Course Vital Signs 03/12/17 10:00 Temperature 99 F Pulse Rate 78 Respiratory 20 Rate Blood Pressure 151/97 O2 Sat by Pulse 99 Oximetry - Reevaluation(s) Reevaluation #1: 03/12/17 11:20 Patient is speaking in full sentences with no signs of distress noted. ED Medical Decision Making - Medical Decision Making This is a 31-year-old male that presents with low back strain. Patient is stable and was examined by me. UA obtained within normal limits. Patient receieved Toradol in the ED which patient stated symptoms are improving and subsiding. NEXUS criteria negative for any c-spine images. Patient is d/c with flexeril and motrin. Patient was instructed not to operate any machinery when taking Flexeril. At time time of discharge, the patient does not seem toxic or ill in appearance. No acute signs of distress noted. Patient agrees to discharge treatment plan of care. No further questions noted by the patient. Critical care attestation.: If time is entered above; I have spent that time in minutes in the direct care of this critically ill patient, excluding procedure time. ED Disposition Clinical Impression: Low back strain Qualifiers: Encounter type: initial encounter Qualified Code(s): S39.012A - Strain of muscle, fascia and tendon of lower back, initial encounter Disposition: TO HOME OR SELFCARE Is pt being admited?: No Does the pt Need Aspirin: No Condition: Stable Instructions: Low Back Strain (ED), Cyclobenzaprine (By mouth), Ibuprofen (By mouth) Additional Instructions: Follow-up with your primary care doctor in 3-5 days or if symptoms worsen such as bladder or bowel stability, chest pain, short of breath, numbness or tingling sensation in extremities, headache, dizziness, visual changes, nausea vomiting, or abdominal pain, return back to emergency room as was possible. Take ibuprofen and Flexeril as prescribed. Do not operate heavy machinery while taking Flexeril due to sedation Prescriptions: Cyclobenzaprine [Flexeril] 10 mg PO QHS PRN #5 tablet PRN Reason: Muscle Spasm Ibuprofen [Motrin] 600 mg PO Q8H PRN #30 tablet PRN Reason: Pain Referrals: PRIMARY CARE, [Primary Care Provider] - 3-5 Days TOMY GUAJARDO MD [Staff Physician] - 3-5 Days [facility] [Outside] - 3-5 Days [facility] [Outside] - 3-5 Days Forms: Work/School Release Form(ED)
[2017-03-12 11:42] LABS: Bilirubin,Urine NEG (Negative); Blood,Urine NEG (Negative); Ketones,Urine NEG (Negative); Leukocyte Esterase,Urine NEG (Negative); Nitrite,Urine NEG (Negative); Protein,Urine <15 mg/dL mg/dL (Negative); Urobilinogen,Urine < 2.0 mg/dL (<2.0)
== END 2017-03-12 12:39 | disposition home or self-care (01) ==
LOC: ED 09:43
DX: S39.012A Strain of muscle, fascia and tendon of lower back, initial encounter (principal); I10 Essential (primary) hypertension; Z86.73 Personal history of transient ischemic attack (TIA), and cerebral infarction without residual deficits; Z87.891 Personal history of nicotine dependence; X50.0XXA Overexertion from strenuous movement or load, initial encounter; Y92.89 Other specified places as the place of occurrence of the external cause; Y99.8 Other external cause status; Z91.010 Allergy to peanuts; Z88.8 Allergy status to other drugs, medicaments and biological substances
CPT/HCPCS: 81001; 96372; 99283; J1885

== ENCOUNTER 2017-08-14 10:49 | Emergency (ER) | payer MEDICAID ==
[2017-08-14] MEDS ORDERED: ASPIRIN PO ONE (11:10)
[2017-08-14] MEDS ORDERED: ZOFRAN ODT PO ONE (12:27)
[2017-08-14] MEDS ORDERED: TORADOL IM ONE (12:27)
[2017-08-14] MEDS ORDERED: TESSALON PERLES PO ONE (12:29)
--- NOTE | 2017-08-14 12:30 | Emergency Department Report ---
Chief Complaint: Chest Pain Stated Complaint: CHEST/THROAT PAIN Time Seen by Provider: 08/14/17 12:17 - HPI History of Present Illness: Patient is 31-year-old male who presents for evaluation of chest pain and abdominal pain. The patient reports 1 day of on and off chest pain, sharp in quality, radiating from the right to the left chest, mild in severity, and associated with upper abdominal pain for the past 2 days, crampy in quality. The patient denies fever, neck pain, parasthesias, dyspnea, cough, hemoptysis, palpitations, dizziness, syncope, unilateral leg swelling, calf muscle pain, shortness of the chest on my, vomiting, diarrhea, blood in the stool, dysuria, hematuria, testicular pain or swelling. - Exam Vital Signs: Vital Signs 08/14/17 11:07 Temperature 98.6 F Pulse Rate 81 Respiratory 18 Rate Blood Pressure 138/87 O2 Sat by Pulse 97 Oximetry MSE screening note: Focused history and physical exam performed. Due to findings the following was ordered: ED Disposition for MSE Clinical Impression: Chest pain, atypical, Mild dehydration, URI with cough and congestion Nausea & vomiting Qualifiers: Vomiting type: unspecified Vomiting Intractability: non-intractable Qualified Code(s): R11.2 - Nausea with vomiting, unspecified Leukocytosis, unspecified Qualifiers: Leukocytosis type: other Qualified Code(s): D72.828 - Other elevated white blood cell count Disposition: - TO HOME OR SELFCARE Condition: Stable Instructions: Chest Pain (ED), Dehydration (ED), Upper Respiratory Infection ( ED), Acute Nausea and Vomiting (ED), Leukocytosis (ED), Viral Syndrome (ED), Acute Cough (ED) Additional Instructions: Please increase her fluid intake to 2-3 L of water daily See referral to [facility], call tomorrow to schedule an appointment for physical exam Take medication as prescribed Prescriptions: Cetirizine HCl [ZyrTEC] 10 mg PO QAM 14 Days #14 capsule Fluticasone [Flonase] 1 spray NS QDAY 14 Days #1 bottle Ibuprofen [Motrin 600 MG tab] 600 mg PO Q8H PRN #12 tablet PRN Reason: Pain Ondansetron [Zofran Odt] 4 mg PO QAM PRN #12 tab.rapdis PRN Reason: Nausea And Vomiting Referrals: [facility] [Outside] - 08/16/17 Forms: Accompanied Note, Work/School Release Form(ED)
--- NOTE | 2017-08-14 13:23 | XRay Report ---
ROUTINE CHEST, TWO VIEWS: HISTORY: Dyspnea. The trachea, heart, mediastinal contour, lung de santiago and bony thorax are unremarkable. No change since 02/04/17. IMPRESSION: Unremarkable chest x-ray.
--- NOTE | 2017-08-14 13:34 | Emergency Department Report ---
HPI - General Chief Complaint: Chest Pain Time Seen by Provider: 08/14/17 12:17 - HPI HPI: Patient here report nausea and vomited 2 days. Denies any abdominal pain. Denies any diarrhea. Denies any blood in vomit or stool. He also states that he is having chest pain since yesterday on and off, pain is worse with coughing. Pain is 10 out of 10 located to mid chest. He said some time pain radiates to both sides of his chest. Denies any back pain. Denies any fever or chills. Denies eating anything abnormal that he can think of that started nausea or vomiting. Denies alcohol use at onset of nausea vomiting. Positive smoker. Patient with a history of hypertension and CVA in the past. He also has slight disorders. Denies any urinary burning, frequency or urgency. Denies any palpitation or syncope episode. Denies any dizziness, blurred vision or headache. Denies any abnormal gait or difficulty in speaking. No medication taken for nausea and vomiting or chest pain. Chest pain is better when he is not coughing. Denies any pain on inspiration. ED Past Medical Hx - Past Medical History Previous Medical History?: Yes Hx Hypertension: Yes Hx CVA: Yes (See above HPI) Hx Congestive Heart Failure: No Hx Diabetes: No Hx Asthma: No Hx COPD: No - Surgical History Past Surgical History?: Yes - Family History Family history: hypertension - Social History Smoking Status: Current Every Day Smoker Substance Use Type: None Other Social History: Lives with family - Medications Home Medications: Home Medications Medication Instructions Recorded Confirmed Last Taken Type Azithromycin [Zithromax Z-CK] 1 dose PO DAILY 5 Days tab 02/04/17 Unknown Rx Benzonatate [Tessalon Perles] 100 mg PO Q8HR #30 capsule 02/04/17 Unknown Rx Ibuprofen [Motrin] 800 mg PO Q8HR PRN #30 tablet 02/04/17 Unknown Rx traMADol [Ultram 50 MG tab] 50 mg PO Q6HR PRN #20 tablet 02/04/17 Unknown Rx Cyclobenzaprine [Flexeril] 10 mg PO QHS PRN #5 tablet 03/12/17 Unknown Rx Cetirizine HCl [ZyrTEC] 10 mg PO QAM 14 Days #14 capsule 08/14/17 Unknown Rx Fluticasone [Flonase] 1 spray NS QDAY 14 Days #1 bottle 08/14/17 Unknown Rx Ibuprofen [Motrin 600 MG tab] 600 mg PO Q8H PRN #12 tablet 08/14/17 Unknown Rx Ondansetron [Zofran Odt] 4 mg PO QAM PRN #12 tab.rapdis 08/14/17 Unknown Rx ED Review of Systems ROS: Stated complaint: CHEST/THROAT PAIN Other details as noted in HPI Constitutional: weakness. denies: chills, fever Eyes: denies: eye pain, eye discharge, vision change ENT: denies: ear pain, throat pain, congestion Respiratory: denies: cough, orthopnea, shortness of breath, SOB with exertion, SOB at rest, stridor, wheezing Cardiovascular: chest pain. denies: palpitations, edema, syncope Endocrine: no symptoms reported Gastrointestinal: nausea, vomiting. denies: abdominal pain, diarrhea, constipation, hematemesis, melena, hematochezia Genitourinary: denies: urgency, dysuria, frequency, hematuria, discharge Musculoskeletal: denies: back pain, joint swelling, arthralgia, myalgia Skin: denies: rash, lesions Neurological: denies: headache, weakness, numbness, paresthesias, confusion, abnormal gait, vertigo Psychiatric: denies: anxiety, depression, auditory hallucinations, visual hallucinations, homicidal thoughts, suicidal thoughts Physical Exam - Physical Exam Vital Signs: Vital Signs 08/14/17 11:07 Temperature 98.6 F Pulse Rate 81 Respiratory 18 Rate Blood Pressure 138/87 O2 Sat by Pulse 97 Oximetry General: This is a 31-year-old male well-nourished well-developed in no acute distress. Physical Exam: Head: Normocephalic, atraumatic, no abrasion, no bruising and no contusion. Eyes: Biateral pupils equal and reactive to light, bilateral EOM intact.. Bilateral conjunctival and sclera without injection, normal accommodation. No nystagmus Mouth: Mucosa dry, no pharyngeal exudate or erythema. No peritonsillar abscesses. Uvula is midline and oral airways patent. Ears: Bilateral TMs congested without any redness swelling or drainage. No mastoid bone tenderness Nose: Bilateral nasal mucosa congested, pale and boggy with clear drainage, Maxillary and frontal sinuses non-tender to palpate. Neck: Supple, No Cervical adenopathy, full range of motion and no C-spine tenderness. No swelling or tracheal deviation normal reflexes Cardiovascular: S1, S2. Regular rate and rhythm. No murmur. Capillary refill is less then 3 seconds. Lungs: Clear to auscultate bilaterally. No rhonchi, wheezes or rales. No chest wall tenderness. No chest contusion. No bruising to chest. MSK: Strength 5/5 in all extremities. No joint deformity or crepitus. Normal inspection. Full range of motion to all extremities. No laceration, abrasion or ecchymotic area noted. Abdomen: Non-tender to palpate in all quadrants, no guarding or rebound tenderness, positive bowel sounds in all quadrants. No CVA tenderness. No hernia, bruit or mass. No rigidity or distention. Extremities: No clubbing, cyanosis or edema. +2 pulses. No neurovascular compromise Skin: Clean, dry and intact. No rash or lesions. Neurological: GCS at 15, Pt is alert and oriented 3 speech is clear . Bilateral hand auto locator strong and equal. Normal gait. Negative Romberg and no pronator drift. Normal Reflexes. No motor or sensory deficit Back: No vertebral tenderness, no paraspinal tenderness. Ambulates without any difficulties. Psych: Normal mood and behavior ED Course Vital Signs 08/14/17 11:07 Temperature 98.6 F Pulse Rate 81 Respiratory 18 Rate Blood Pressure 138/87 O2 Sat by Pulse 97 Oximetry - Reevaluation(s) Reevaluation #1: 08/14/17 13:40 She received Toradol 30 mg IM, Zofran ODT, Tessalon Perles 100 mg and aspirin 325 mg at emergency room. Tolerating oral fluids fluids well without any nausea or vomiting. He is currently not having any chest pain and nausea has resolved. He said he feels better ED Medical Decision Making - EKG Data -: EKG Interpreted by Me (attending physician) EKG shows normal: sinus rhythm Rate: normal (74 bpm) - EKG Data Interpretation: no acute changes - Radiology Data Radiology results: report reviewed XR reveals no acute cardiopulmonary processes Patient: BEN COLE MR#: [id number] : 1985 Acct:[id number] Age/Sex: 31 / M ADM Date: 08/14/17 Loc: ED Attending Dr: Ordering Physician: ROBERTO MORROW MD Date of Service: 08/14/17 Procedure(s): XR chest routine 2V Accession Number(s): [id number] cc: ROBERTO MORROW MD Fluoro Time In Minutes: ROUTINE CHEST, TWO VIEWS: HISTORY: Dyspnea. The trachea, heart, mediastinal contour, lung de santiago and bony thorax are unremarkable. No change since 02/04/17. IMPRESSION: Unremarkable chest x-ray. Transcribed By: TTR Dictated By: AMARILIS BUNDY JR, MD Electronically Authenticated By: AMARILIS BUNDY JR, MD Signed Date/Time: 08/14/171313 DD/ 13 TD/TT: 08/14/171313 - Medical Decision Making ED course: Patient with Nausea and vomiting and cp x2 days. CXR revealed no acute cardiopulmonary findings. EKG stable. Patient found to have URI with cough and congestion, Atypical cp, N/V more than likely viral syndrome. He was hydrated orally in ED with juice and tolerated well. He received Toradol 30 mg IM, Zofran ODT, Tessalon Perles 100 mg and aspirin 325 mg at emergency room. He is currently not having any chest pain and nausea has resolved. He said he feels better. I discussed DX, treatmnt paln and follow up with patient. He voiced understanding. Discharge from ED in stable condition to follow up with PCP. Given prescription for zyrtec, flonase for URI, Zofran for nausea and motrin for pain. he was encoraged to increase fluid intake to prevent dehydration Critical care attestation.: If time is entered above; I have spent that time in minutes in the direct care of this critically ill patient, excluding procedure time. ED Disposition Clinical Impression: Chest pain, atypical, Mild dehydration, URI with cough and congestion Nausea & vomiting Qualifiers: Vomiting type: unspecified Vomiting Intractability: non-intractable Qualified Code(s): R11.2 - Nausea with vomiting, unspecified Leukocytosis, unspecified Qualifiers: Leukocytosis type: other Qualified Code(s): D72.828 - Other elevated white blood cell count Disposition: TO HOME OR SELFCARE Is pt being admited?: No Does the pt Need Aspirin: No Condition: Stable Instructions: Chest Pain (ED), Dehydration (ED), Upper Respiratory Infection ( ED), Acute Nausea and Vomiting (ED), Leukocytosis (ED), Viral Syndrome (ED), Acute Cough (ED) Additional Instructions: Please increase her fluid intake to 2-3 L of water daily See referral to [facility] family practice, call tomorrow to schedule an appointment for physical exam Take medication as prescribed Prescriptions: Cetirizine HCl [ZyrTEC] 10 mg PO QAM 14 Days #14 capsule Fluticasone [Flonase] 1 spray NS QDAY 14 Days #1 bottle Ibuprofen [Motrin 600 MG tab] 600 mg PO Q8H PRN #12 tablet PRN Reason: Pain Ondansetron [Zofran Odt] 4 mg PO QAM PRN #12 tab.rapdis PRN Reason: Nausea And Vomiting Referrals: [facility] [Outside] - 08/16/17 Forms: Accompanied Note, Work/School Release Form(ED)
[2017-08-14 13:41] VITALS: BP 142/94
== END 2017-08-14 13:55 | disposition home or self-care (01) ==
LOC: ED 10:49
DX: E86.0 Dehydration (principal); J02.9 Acute pharyngitis, unspecified; D72.828 Other elevated white blood cell count; R07.89 Other chest pain; I10 Essential (primary) hypertension; F17.200 Nicotine dependence, unspecified, uncomplicated
CPT/HCPCS: 71046; 93005; 93010; 96372; 99283; J1885; Q0162

== ENCOUNTER 2018-04-19 17:19 | Emergency (ER) | payer MEDICAID ==
[2018-04-19] MEDS ORDERED: IBUPROFEN PO ONE (19:00)
[2018-04-19] MEDS ORDERED: ULTRAM PO ONE (19:00)
[2018-04-19] MEDS ORDERED: IBUPROFEN ONE (19:00)
[2018-04-19] MEDS ORDERED: ULTRAM ONE (19:00)
--- NOTE | 2018-04-19 19:14 | Emergency Department Report ---
ED ENT HPI - General Chief complaint: Pain General Stated complaint: LFT SIDE FACE SWELLING/PAIN Time Seen by Provider: 04/19/18 19:02 Source: patient, family Mode of arrival: Ambulatory Limitations: No Limitations - History of Present Illness Initial comments: [id number] male patient here complaining of pain to his left facial area that started yesterday. He reports swelling and report that his upper right tooth multiple sites with pain. Reports no sore throat but reports some drooling. Pain is 10 out of 10 and achy and worse with talking and needed. Denies any fever or chills. Denies any nausea or vomiting. Patient has a history of high blood pressure and he said his disease in a lot of pain. Denies any stridor, wheezing or difficulty breathing. Denies any chest pain or shortness of breath. Denies any nausea or vomiting. Denies any sinus pain, pressure or nasal drainage. Denies any headache. OTC pain medication not he lping MD complaint: tooth pain, other (facial swelling swelling) Location: tooth # (2,3,4 and 5) Severity: severe Severity scale (0 -10): 10 Quality: aching Consistency: constant Improves with: none Worsens with: eating, movement Context- Dental: history of dental caries, poor dental care Associated Symptoms: gum swelling, toothache. denies: fever, cough, pain with swallowing, sore throat, tinnitus, hearing loss, discharge from ear, rhinorrhea - Related Data Previous Rx's Medication Instructions Recorded Last Taken Type Azithromycin [Zithromax Z-CK] 1 dose PO DAILY 5 Days tab 02/04/17 Unknown Rx Benzonatate [Tessalon Perles] 100 mg PO Q8HR #30 capsule 02/04/17 Unknown Rx Ibuprofen [Motrin] 800 mg PO Q8HR PRN #30 tablet 02/04/17 Unknown Rx traMADol [Ultram 50 MG tab] 50 mg PO Q6HR PRN #20 tablet 02/04/17 Unknown Rx Cyclobenzaprine [Flexeril] 10 mg PO QHS PRN #5 tablet 03/12/17 Unknown Rx Cetirizine HCl [ZyrTEC] 10 mg PO QAM 14 Days #14 capsule 08/14/17 Unknown Rx Fluticasone [Flonase] 1 spray NS QDAY 14 Days #1 bottle 08/14/17 Unknown Rx Ibuprofen [Motrin 600 MG tab] 600 mg PO Q8H PRN #12 tablet 08/14/17 Unknown Rx Ondansetron [Zofran Odt] 4 mg PO QAM PRN #12 tab.rapdis 08/14/17 Unknown Rx Acetaminophen/Codeine [Tylenol 1 tab PO Q6H PRN #14 tab 04/19/18 Unknown Rx /Codeine # 3 tab] Clindamycin [Clindamycin CAP] 300 mg PO Q8H 10 Days #30 cap 04/19/18 Unknown Rx Ibuprofen [Motrin] 800 mg PO Q8HR PRN #12 tablet 04/19/18 Unknown Rx Allergies Allergy/AdvReac Type Severity Reaction Status Date / Time peanut Allergy Severe tightening Verified 04/19/18 17:48 of airway shellfish derived Allergy Unknown Verified 04/19/18 19:24 ED Dental HPI - General Chief complaint: Pain General Stated complaint: LFT SIDE FACE SWELLING/PAIN Time Seen by Provider: 04/19/18 19:02 Source: patient Mode of arrival: Ambulatory Limitations: No Limitations - Related Data Previous Rx's Medication Instructions Recorded Last Taken Type Azithromycin [Zithromax Z-CK] 1 dose PO DAILY 5 Days tab 02/04/17 Unknown Rx Benzonatate [Tessalon Perles] 100 mg PO Q8HR #30 capsule 02/04/17 Unknown Rx Ibuprofen [Motrin] 800 mg PO Q8HR PRN #30 tablet 02/04/17 Unknown Rx traMADol [Ultram 50 MG tab] 50 mg PO Q6HR PRN #20 tablet 02/04/17 Unknown Rx Cyclobenzaprine [Flexeril] 10 mg PO QHS PRN #5 tablet 03/12/17 Unknown Rx Cetirizine HCl [ZyrTEC] 10 mg PO QAM 14 Days #14 capsule 08/14/17 Unknown Rx Fluticasone [Flonase] 1 spray NS QDAY 14 Days #1 bottle 08/14/17 Unknown Rx Ibuprofen [Motrin 600 MG tab] 600 mg PO Q8H PRN #12 tablet 08/14/17 Unknown Rx Ondansetron [Zofran Odt] 4 mg PO QAM PRN #12 tab.rapdis 08/14/17 Unknown Rx Acetaminophen/Codeine [Tylenol 1 tab PO Q6H PRN #14 tab 04/19/18 Unknown Rx /Codeine # 3 tab] Clindamycin [Clindamycin CAP] 300 mg PO Q8H 10 Days #30 cap 04/19/18 Unknown Rx Ibuprofen [Motrin] 800 mg PO Q8HR PRN #12 tablet 04/19/18 Unknown Rx Allergies Allergy/AdvReac Type Severity Reaction Status Date / Time peanut Allergy Severe tightening Verified 04/19/18 17:48 of airway shellfish derived Allergy Unknown Verified 04/19/18 19:24 ED Review of Systems ROS: Stated complaint: LFT SIDE FACE SWELLING/PAIN Other details as noted in HPI Constitutional: denies: chills, fever ENT: denies: ear pain, throat pain, dental pain, hearing loss, congestion Respiratory: denies: cough, shortness of breath, SOB with exertion, SOB at rest, stridor, wheezing Cardiovascular: denies: chest pain, palpitations, dyspnea on exertion, edema, syncope, paroxysmal nocturnal dyspnea Gastrointestinal: denies: abdominal pain, nausea, vomiting, diarrhea, constipation, hematemesis, hematochezia Genitourinary: denies: dysuria, hematuria Musculoskeletal: denies: back pain, joint swelling, arthralgia, myalgia Skin: denies: rash Neurological: denies: headache, weakness, numbness, paresthesias, confusion, abnormal gait, vertigo ED Past Medical Hx - Past Medical History Previous Medical History?: Yes Hx Hypertension: Yes Hx CVA: Yes (See above HPI) Hx Congestive Heart Failure: No Hx Diabetes: No Hx Asthma: Yes Hx COPD: No - Surgical History Past Surgical History?: Yes - Family History Family history: hypertension - Social History Smoking Status: Never Smoker Substance Use Type: Alcohol - Medications Home Medications: Home Medications Medication Instructions Recorded Confirmed Last Taken Type Azithromycin [Zithromax Z-CK] 1 dose PO DAILY 5 Days tab 02/04/17 Unknown Rx Benzonatate [Tessalon Perles] 100 mg PO Q8HR #30 capsule 02/04/17 Unknown Rx Ibuprofen [Motrin] 800 mg PO Q8HR PRN #30 tablet 02/04/17 Unknown Rx traMADol [Ultram 50 MG tab] 50 mg PO Q6HR PRN #20 tablet 02/04/17 Unknown Rx Cyclobenzaprine [Flexeril] 10 mg PO QHS PRN #5 tablet 12/10/17 Unknown Rx Cetirizine HCl [ZyrTEC] 10 mg PO QAM 14 Days #14 capsule 08/14/17 Unknown Rx Fluticasone [Flonase] 1 spray NS QDAY 14 Days #1 bottle 08/14/17 Unknown Rx Ibuprofen [Motrin 600 MG tab] 600 mg PO Q8H PRN #12 tablet 08/14/17 Unknown Rx Ondansetron [Zofran Odt] 4 mg PO QAM PRN #12 tab.rapdis 08/14/17 Unknown Rx Acetaminophen/Codeine [Tylenol 1 tab PO Q6H PRN #14 tab 04/19/18 Unknown Rx /Codeine # 3 tab] Clindamycin [Clindamycin CAP] 300 mg PO Q8H 10 Days #30 cap 04/19/18 Unknown Rx Ibuprofen [Motrin] 800 mg PO Q8HR PRN #12 tablet 04/19/18 Unknown Rx ED Physical Exam - General Limitations: No Limitations General appearance: alert, in no apparent distress - Head Head exam: Present: atraumatic, normocephalic, normal inspection, other (normal exam) - Eye Eye exam: Present: normal appearance, PERRL, EOMI Pupils: Present: normal accommodation - ENT ENT exam: Present: normal orophraynx, mucous membranes moist, TM's normal bilaterally, normal external ear exam, other (uvula with mild shift into the left and oral airways patent.) - Expanded ENT Exam Expanded Ear exam: Present: normal external inspection Mouth exam: Present: drooling, tongue normal, other (myelopathic score is 3+). Absent: trismus, muffled voice, tongue elevation, laceration Teeth exam: Present: dental caries, fractured tooth #, dental tenderness # (multiple 2/3/4 and 5), gingival enlargement 1 - Fractured, Dental Tenderness, Other (dental caries) Throat exam: Positive: tonsillomegaly (right). Negative: tonsillar erythema, tonsillar exudate - Neck Neck exam: Present: normal inspection, full ROM, lymphadenopathy (cervical). Absent: tenderness - Respiratory Respiratory exam: Present: normal lung sounds bilaterally. Absent: respiratory distress, wheezes, rales, rhonchi, stridor, chest wall tenderness, accessory muscle use, decreased breath sounds, prolonged expiratory, other - Cardiovascular Cardiovascular Exam: Present: regular rate, normal rhythm, normal heart sounds - Extremities Exam Extremities exam: Present: normal inspection, full ROM, normal capillary refill, other (No cce. + 2 pulses in all extremities, no neurovascular compromise). Absent: tenderness, pedal edema, joint swelling, calf tenderness - Neurological Exam Neurological exam: Present: alert, oriented X3, normal gait - Psychiatric Psychiatric exam: Present: normal affect, normal mood - Skin Skin exam: Present: warm, dry, intact, normal color. Absent: rash ED Course Vital Signs 04/19/18 04/19/18 17:48 23:55 Temperature 98.9 F Pulse Rate 85 Respiratory 18 Rate Blood Pressure 162/103 Blood Pressure 142/88 [Left] O2 Sat by Pulse 96 Oximetry - Reevaluation(s) Reevaluation #1: 04/19/18 20:36 Age and given clindamycin 900 mg IV, Decadron 8 mg IV, Toradol 30 mg IV and morphine 4 mg IV with 1 L of normal saline. Pain is better and oral airway remains patent. Reevaluation #2: 04/19/18 21:33 Patient is stable and is in no acute distress. Had Benadryl 50 mg IV and Pepcid 40 mg IV prior to CT scan with IV contrast due to shellfish allergies which she does not remember. He is awaiting in CT scan with IV contrast of the neck results. Oral airways patent without any difficulty in breathing. He had no adverse reaction from iodine. Reevaluation #3: 04/19/18 22:37 Patient remained stable and still await in CT scan with IV contrast of the neck wrist support. Oral airways patent and he said his pain is better. No compro mise and swelling has diminished. No adverse reaction from IV contrast Reevaluation #4: 04/19/18 23:[address] scans back without any FLOODPLAIN MANAGER. ED Medical Decision Making - Lab Data Result diagrams: 04/19/18 19:41 04/19/18 19:41 Lab Results 04/19/18 04/19/18 Range/Units 19:41 19:41 WBC 6.8 (4.5-11.0) K/mm3 RBC 5.07 H (3.65-5.03) M/mm3 Hgb 14.9 (11.8-15.2) gm/dl Hct 44.0 (35.5-45.6) % MCV 87 (84-94) fl MCH 30 (28-32) pg MCHC 34 (32-34) % RDW 15.0 (13.2-15.2) % Plt Count 212 (140-440) K/mm3 Lymph % (Auto) 22.1 (13.4-35.0) % [place] % (Auto) 5.7 (0.0-7.3) % Eos % (Auto) 1.2 (0.0-4.3) % Baso % (Auto) 0.5 (0.0-1.8) % Lymph # 1.5 (1.2-5.4) K/mm3 [place] # 0.4 (0.0-0.8) K/mm3 Eos # 0.1 (0.0-0.4) K/mm3 Baso # 0.0 (0.0-0.1) K/mm3 Seg Neutrophils % 70.5 H (40.0-70.0) % Seg Neutrophils # 4.8 (1.8-7.7) K/mm3 Sodium 138 (137-145) mmol/L Potassium 4.3 (3.6-5.0) mmol/L Chloride 100.3 (98-107) mmol/L Carbon Dioxide 29 (22-30) mmol/L Anion Gap 13 mmol/L BUN 10 (9-20) mg/dL Creatinine 1.3 (0.8-1.5) mg/dL Estimated GFR > 60 ml/min BUN/Creatinine Ratio 8 % Glucose 134 H (75-100) mg/dL Calcium 9.4 (8.4-10.2) mg/dL Total Bilirubin 0.50 (0.1-1.2) mg/dL AST 14 (5-40) units/L ALT 19 (7-56) units/L Alkaline Phosphatase 67 (35-129) units/L Total Protein 7.7 (6.3-8.2) g/dL Albumin 4.3 (3.9-5) g/dL Albumin/Globulin Ratio 1.3 % Blood culture sent - Radiology Data Radiology results: report reviewed CT scan of the neck with IV contrast dictated by radiologist and report reviewed by myself. See report below for details Findings [facility] [address] [place] [address] Cat Scan Report Signed Patient: BEN COLE MR#: [id number] : 1985 Acct:[id number] Age/Sex: 32 / M ADM Date: 04/19/18 Loc: ED Attending Dr: Ordering Physician: HAKEEM MURPHY Date of Service: 04/19/18 Procedure(s): CT neck w con Accession Number(s): [id number] cc: HAKEEM MURPHY FINAL REPORT PROCEDURE: CT NECK W CON TECHNIQUE: Computerized axial tomography of the soft tissue neck was performed following the IV injection of iodinated nonionic contrast. HISTORY: drooling, facial swelling COMPARISON: No prior studies are available for comparison. FINDINGS: Skull and scalp: Normal. Paranasal sinuses: Polypoid mucosal thickening is noted involving left maxillary sinus most likely representing mucous retention cyst formation.. Nasopharynx: Normal . Oral cavity: Normal . Epiglottis/vallecula: Normal . Larynx/pyriform sinuses: Normal . Thyroid gland: Normal . Lymph nodes: A mildly enlarged lymph node measuring 1.3 centimeters in short axis is located on the right side in the upper anterior cervical chain. Salivary glands: Normal . Upper thorax: Normal . Mild degree left facial subcutaneous fat induration is identified adjacent to the left upper jaw without any evidence of a fluid collection. IMPRESSION: Soft tissue induration of left-sided face adjacent to left upper jaw most likely represents infection of dental origin without any abscess formation at the present time. A single mildly enlarged lymph node is noted in the right upper anterior cervical chain. Transcribed By: [facility] [place] Dictated By: ERIC LUNA Electronically Authenticated By: ERIC LUNA Signed Date/Time: 04/19/182328 DD/ 29 TD/TT: 04/19/182329 - Medical Decision Making This is a 32-year-old male here reports that he is having left facial swelling that started yesterday. Physical findings for extensive dental caries with gingivitis and dental tenderness with erythema and no induration noted. Beta treated in emergency room with normal saline 1 L, morphine 4 mg IV, Toradol 30 mg IV, Decadron 10 mg IV - Differential Diagnosis FLOODPLAIN MANAGER, dental abscess versus cellulitis, toothache, gingivitis Critical care attestation.: If time is entered above; I have spent that time in minutes in the direct care of this critically ill patient, excluding procedure time. ED Disposition Clinical Impression: Toothache, Oral cellulitis, Dental caries, Gingivitis Disposition: TO HOME OR SELFCARE Is pt being admited?: No Does the pt Need Aspirin: No Condition: Stable Instructions: Dental Abscess (ED), Dental Caries (ED), Gingivitis (ED), Toothache (ED) Additional Instructions: Please follow up with dentist as instructed. Call in the morning to schedule an appointment and see referrals on discharge instruction paperwork Take Motrin for mild to moderate pain and Tylenol No. 3 for severe pain Take clindamycin for dental infection. Gargle warm salt water Prescriptions: Acetaminophen/Codeine [Tylenol /Codeine # 3 tab] 1 tab PO Q6H PRN #14 tab PRN Reason: moderate to severe pain Clindamycin [Clindamycin CAP] 300 mg PO Q8H 10 Days #30 cap Ibuprofen [Motrin] 800 mg PO Q8HR PRN #12 tablet PRN Reason: mild to moderate pain Referrals: [facility] [Outside] - 04/23/18 [facility] [Outside] - 04/23/18 Forms: Accompanied Note, Work/School Release Form(ED)
[2018-04-19] MEDS ORDERED: MORPHINE IV ONE (19:15)
[2018-04-19] MEDS ORDERED: ZOFRAN IV ONE (19:15)
[2018-04-19] MEDS ORDERED: TORADOL IVP ONE (19:15)
[2018-04-19] MEDS ORDERED: CLEOCIN 900 MG/50 mL 900 MG/50 ML BAG IV ONE (19:15)
[2018-04-19] MEDS ORDERED: NACL 0.9% 1000 ML 1,000 ML IV ONE (19:15)
[2018-04-19] MEDS ORDERED: DECADRON IV STA (19:15)
[2018-04-19] MEDS ORDERED: BENADRYL IV ONE (19:24)
[2018-04-19] MEDS ORDERED: PEPCID IV ONE (19:24)
[2018-04-19 19:59] LABS: Basophils % (Auto) 0.5 % (0.0-1.8); Eosinophils # (Auto) 0.1 K/mm3 (0.0-0.4); Eosinophils % (Auto) 1.2 % (0.0-4.3); Hemoglobin 14.9 gm/dl (11.8-15.2); Lymphocytes # (Auto) 1.5 K/mm3 (1.2-5.4); Lymphocytes % (Auto) 22.1 % (13.4-35.0); Mean Corpuscular HGB Conc 34 % (32-34); Mean Corpuscular Volume 87 fl (84-94); Monocytes # (Auto) 0.4 K/mm3 (0.0-0.8); Monocytes % (Auto) 5.7 % (0.0-7.3); Platelet Count 212 K/mm3 (140-440); Red Blood Count 5.07 M/mm3 (3.65-5.03)
[2018-04-19 20:44] LABS: Alanine Aminotransferase 19 units/L (7-56); Albumin 4.3 g/dL (3.9-5); BUN/Creatinine Ratio 8; Blood Urea Nitrogen 10 mg/dL (9-20); Calcium 9.4 mg/dL (8.4-10.2); Hemolysis Index 5
--- NOTE | 2018-04-19 23:29 | Cat Scan Report ---
FINAL REPORT PROCEDURE: CT NECK W CON TECHNIQUE: Computerized axial tomography of the soft tissue neck was performed following the IV inje ction of iodinated nonionic contrast. HISTORY: drooling, facial swelling COMPARISON: No prior studies are available for comparison. FINDINGS: Skull and scalp: Normal. Paranasal sinuses: Polypoid mucosal thickening is noted involving left maxillary sinus most likely re presenting mucous retention cyst formation.. Nasopharynx: Normal . Oral cavity: Normal . Epiglottis/vallecula: Normal . Larynx/pyriform sinuses: Normal . Thyroid gland: Normal . Lymph nodes: A mildly enlarged lymph node measuring 1.3 centimeters in short axis is located on the r ight side in the upper anterior cervical chain. Salivary glands: Normal . Upper thorax: Normal . Mild degree left facial subcutaneous fat induration is identified adjacent to the left upper jaw with out any evidence of a fluid collection. IMPRESSION: Soft tissue induration of left-sided face adjacent to left upper jaw most likely represents infection of dental origin without any abscess formation at the present time. A single mildly enlarged lymph node is noted in the right upper anterior cervical chain.
[2018-04-19 23:55] VITALS: BP 142/88
== END 2018-04-20 00:05 | disposition home or self-care (01) ==
LOC: ED 17:19
DX: K02.9 Dental caries, unspecified (principal); K05.00 Acute gingivitis, plaque induced; K12.2 Cellulitis and abscess of mouth; I10 Essential (primary) hypertension; J45.909 Unspecified asthma, uncomplicated; Z86.73 Personal history of transient ischemic attack (TIA), and cerebral infarction without residual deficits; Z79.899 Other long term (current) drug therapy; Z91.010 Allergy to peanuts; Z91.013 Allergy to seafood
CPT/HCPCS: 36415; 70491; 80053; 85025; 87040; 96365; 96375; 99284; J1100; J1200; J1885; J2270; J2405; J7030; Q9967

== ENCOUNTER 2020-10-27 10:45 | Emergency (ER) | payer MEDICAID | END 2020-10-27 12:30 | LOC: ED 10:45 | DX: S49.92XA Unspecified injury of left shoulder and upper arm, initial encounter (principal); Z53.21 Procedure and treatment not carried out due to patient leaving prior to being seen by health care provider; X58.XXXA Exposure to other specified factors, initial encounter; Y93.89 Activity, other specified; Y92.89 Other specified places as the place of occurrence of the external cause; Y99.8 Other external cause status ==

== ENCOUNTER 2021-02-17 10:05 | Emergency (ER) | payer MEDICAID ==
[2021-02-17 10:10] VITALS: BP 188/130
--- NOTE | 2021-02-17 10:53 | Emergency Department Report ---
ED ENT HPI - General Chief complaint: Dental/Oral Stated complaint: SWOLLEN MOUTH Time Seen by Provider: 02/17/21 10:34 Source: patient Mode of arrival: Ambulatory Limitations: No Limitations - History of Present Illness Initial comments: 35-year-old -[place] male presents to the emergency room complaining of left upper gum pain and swelling. Patient states that he is aware that he has multiple bad teeth that are rotten down to the gums. Patient states that he was trying to get fitted for dentures in was told that they needed to be removed. Patient comes in now for 2-day history of pain and swelling. Denies any fever denies any discharge coming from the teeth. MD complaint: tooth pain Onset/Timin -: days(s) Location: tooth # Severity: severe Quality: stabbing, aching, sharp Consistency: constant Worsens with: none Associated Symptoms: gum swelling, toothache - Related Data Previous Rx's Medication Instructions Recorded Last Taken Type Azithromycin [Zithromax Z-CK] 1 dose PO DAILY 5 Days tab 02/04/17 Unknown Rx Benzonatate [Tessalon Perles] 100 mg PO Q8HR #30 capsule 02/04/17 Unknown Rx Ibuprofen [Motrin] 800 mg PO Q8HR PRN #30 tablet 02/04/17 Unknown Rx traMADoL [Ultram 50 MG tab] 50 mg PO Q6HR PRN #20 tablet 02/04/17 Unknown Rx Cyclobenzaprine [Flexeril] 10 mg PO QHS PRN #5 tablet 03/12/17 Unknown Rx Cetirizine HCl [ZyrTEC] 10 mg PO QAM 14 Days #14 capsule 08/14/17 Unknown Rx Fluticasone [Flonase] 1 spray NS QDAY 14 Days #1 bottle 08/14/17 Unknown Rx Ibuprofen [Motrin 600 MG tab] 600 mg PO Q8H PRN #12 tablet 08/14/17 Unknown Rx Ondansetron [Zofran Odt] 4 mg PO QAM PRN #12 tab.rapdis 08/14/17 Unknown Rx Acetaminophen/Codeine [Tylenol 1 tab PO Q6H PRN #14 tab 04/19/18 Unknown Rx /Codeine # 3 tab] Clindamycin [Clindamycin CAP] 300 mg PO Q8H 10 Days #30 cap 04/19/18 Unknown Rx Ibuprofen [Motrin] 800 mg PO Q8HR PRN #12 tablet 04/19/18 Unknown Rx Chlorhexidine Mouthwash [Peridex] 15 ml MM BID #473 ml 02/17/21 Unknown Rx Clindamycin [Clindamycin CAP] 300 mg PO Q8H #30 cap 02/17/21 Unknown Rx Naproxen 500 mg PO BID PRN #20 tablet 02/17/21 Unknown Rx Allergies Allergy/AdvReac Type Severity Reaction Status Date / Time peanut Allergy Severe tightening Verified 02/17/21 10:10 of airway shellfish derived Allergy Unknown Verified 02/17/21 10:10 Iodinated Contrast Media AdvReac Anaphylaxis Verified 02/17/21 10:10 ED Dental HPI - General Chief complaint: Dental/Oral Stated complaint: SWOLLEN MOUTH Time Seen by Provider: 02/17/21 10:34 Source: patient Mode of arrival: Ambulatory Limitations: No Limitations - Related Data Previous Rx's Medication Instructions Recorded Last Taken Type Azithromycin [Zithromax Z-CK] 1 dose PO DAILY 5 Days tab 02/04/17 Unknown Rx Benzonatate [Tessalon Perles] 100 mg PO Q8HR #30 capsule 02/04/17 Unknown Rx Ibuprofen [Motrin] 800 mg PO Q8HR PRN #30 tablet 02/04/17 Unknown Rx traMADoL [Ultram 50 MG tab] 50 mg PO Q6HR PRN #20 tablet 02/04/17 Unknown Rx Cyclobenzaprine [Flexeril] 10 mg PO QHS PRN #5 tablet 03/12/17 Unknown Rx Cetirizine HCl [ZyrTEC] 10 mg PO QAM 14 Days #14 capsule 08/14/17 Unknown Rx Fluticasone [Flonase] 1 spray NS QDAY 14 Days #1 bottle 08/14/17 Unknown Rx Ibuprofen [Motrin 600 MG tab] 600 mg PO Q8H PRN #12 tablet 08/14/17 Unknown Rx Ondansetron [Zofran Odt] 4 mg PO QAM PRN #12 tab.rapdis 08/14/17 Unknown Rx Acetaminophen/Codeine [Tylenol 1 tab PO Q6H PRN #14 tab 04/19/18 Unknown Rx /Codeine # 3 tab] Clindamycin [Clindamycin CAP] 300 mg PO Q8H 10 Days #30 cap 01/17/19 Unknown Rx Ibuprofen [Motrin] 800 mg PO Q8HR PRN #12 tablet 04/19/18 Unknown Rx Chlorhexidine Mouthwash [Peridex] 15 ml MM BID #473 ml 02/17/21 Unknown Rx Clindamycin [Clindamycin CAP] 300 mg PO Q8H #30 cap 02/17/21 Unknown Rx Naproxen 500 mg PO BID PRN #20 tablet 02/17/21 Unknown Rx Allergies Allergy/AdvReac Type Severity Reaction Status Date / Time peanut Allergy Severe tightening Verified 02/17/21 10:10 of airway shellfish derived Allergy Unknown Verified 02/17/21 10:10 Iodinated Contrast Media AdvReac Anaphylaxis Verified 02/17/21 10:10 ED Review of Systems ROS: Stated complaint: SWOLLEN MOUTH Other details as noted in HPI Comment: All other systems reviewed and negative ED Past Medical Hx - Past Medical History Hx Hypertension: Yes Hx CVA: Yes (See above HPI) Hx Congestive Heart Failure: No Hx Diabetes: No Hx Asthma: Yes Hx COPD: No - Social History Smoking Status: Never Smoker Substance Use Type: Alcohol - Medications Home Medications: Home Medications Medication Instructions Recorded Confirmed Last Taken Type Azithromycin [Zithromax Z-CK] 1 dose PO DAILY 5 Days tab 02/04/17 Unknown Rx Benzonatate [Tessalon Perles] 100 mg PO Q8HR #30 capsule 02/04/17 Unknown Rx Ibuprofen [Motrin] 800 mg PO Q8HR PRN #30 tablet 02/04/17 Unknown Rx traMADoL [Ultram 50 MG tab] 50 mg PO Q6HR PRN #20 tablet 02/04/17 Unknown Rx Cyclobenzaprine [Flexeril] 10 mg PO QHS PRN #5 tablet 03/12/17 Unknown Rx Cetirizine HCl [ZyrTEC] 10 mg PO QAM 14 Days #14 capsule 08/14/17 Unknown Rx Fluticasone [Flonase] 1 spray NS QDAY 14 Days #1 bottle 08/14/17 Unknown Rx Ibuprofen [Motrin 600 MG tab] 600 mg PO Q8H PRN #12 tablet 08/14/17 Unknown Rx Ondansetron [Zofran Odt] 4 mg PO QAM PRN #12 tab.rapdis 08/14/17 Unknown Rx Acetaminophen/Codeine [Tylenol 1 tab PO Q6H PRN #14 tab 04/19/18 Unknown Rx /Codeine # 3 tab] Clindamycin [Clindamycin CAP] 300 mg PO Q8H 10 Days #30 cap 04/19/18 Unknown Rx Ibuprofen [Motrin] 800 mg PO Q8HR PRN #12 tablet 04/19/18 Unknown Rx Chlorhexidine Mouthwash [Peridex] 15 ml MM BID #473 ml 02/17/21 Unknown Rx Clindamycin [Clindamycin CAP] 300 mg PO Q8H #30 cap 02/17/21 Unknown Rx Naproxen 500 mg PO BID PRN #20 tablet 02/17/21 Unknown Rx ED Physical Exam - General Limitations: No Limitations General appearance: alert, in no apparent distress - Head Head exam: Present: atraumatic, normocephalic - Eye Eye exam: Present: normal appearance - ENT ENT exam: Present: mucous membranes moist - Expanded ENT Exam Expanded Teeth exam: Present: dental caries, dental tenderness #, gingival enlargement, other (Left upper jaw teeth are rotten to the gumline) - Neck Neck exam: Present: normal inspection - Respiratory Respiratory exam: Present: normal lung sounds bilaterally. Absent: respiratory distress - Cardiovascular Cardiovascular Exam: Present: regular rate, normal rhythm. Absent: systolic murmur, diastolic murmur, rubs, gallop - GI/Abdominal GI/Abdominal exam: Present: soft, normal bowel sounds - Rectal Rectal exam: Present: deferred - Extremities Exam Extremities exam: Present: normal inspection - Back Exam Back exam: Present: normal inspection - Neurological Exam Neurological exam: Present: alert, oriented X3 - Psychiatric Psychiatric exam: Present: normal affect, normal mood - Skin Skin exam: Present: warm, dry, intact, normal color. Absent: rash ED Course Vital Signs 02/17/21 10:09 Temperature 98.4 F Pulse Rate 85 Respiratory 20 Rate Blood Pressure 188/130 [Left] O2 Sat by Pulse 99 Oximetry ED Medical Decision Making - Medical Decision Making 35-year-old -[place] male presents to the emergency room complaining of left upper gum pain and swelling. Patient states that he is aware that he has multiple bad teeth that are rotten down to the gums. Patient states that he was trying to get fitted for dentures in was told that they needed to be removed. Patient comes in now for 2-day history of pain and swelling. Denies any fever denies any discharge coming from the teeth. Patient has what appears to be trench mouth multiple dental caries that are rotten to the gums with swelling tenderness. Patient will be discharged on clindamycin naproxen and Peridex and referral to oral surgeon. Critical care attestation.: If time is entered above; I have spent that time in minutes in the direct care of this critically ill patient, excluding procedure time. ED Disposition Clinical Impression: Trench mouth, Dental abscess Disposition: HOME / SELF CARE / HOMELESS Is pt being admited?: No Does the pt Need Aspirin: No Condition: Stable Instructions: Dental Abscess, [id number], Trench Mouth Additional Instructions: Complete antibiotics as prescribed use mouth wash as prescribed. It is very important to follow-up with an oral surgeon as you need to have the loose teeth surgically extracted from your gums. Naproxen as needed for pain management. Be sure to eat and increase your fluids. Prescriptions: Clindamycin [Clindamycin CAP] 300 mg PO Q8H #30 cap Naproxen 500 mg PO BID PRN #20 tablet PRN Reason: Pain , Severe (7-10) Chlorhexidine Mouthwash [Peridex] 15 ml MM BID #473 ml Referrals: [facility] [Outside] - 3-5 Days [facility] [Outside] - 3-5 Days [facility] [Outside] - 3-5 Days Forms: Work/School Release Form(ED) Time of Disposition: 10:52
== END 2021-02-17 11:18 | disposition home or self-care (01) ==
LOC: ED 10:05
DX: A69.1 Other Vincent's infections (principal); K04.7 Periapical abscess without sinus; I10 Essential (primary) hypertension; J45.909 Unspecified asthma, uncomplicated; Z86.73 Personal history of transient ischemic attack (TIA), and cerebral infarction without residual deficits; Z91.013 Allergy to seafood; Z91.010 Allergy to peanuts; Z91.041 Radiographic dye allergy status; Z79.899 Other long term (current) drug therapy
CPT/HCPCS: 99281

== ENCOUNTER 2021-02-18 09:46 | Emergency (ER) | payer MEDICAID ==
[2021-02-18] MEDS ORDERED: ACETAMINOPHEN 325 MG TAB PO STA (10:33)
[2021-02-18] MEDS ORDERED: IBUPROFEN ORAL LIQD 100 MG/5 ML ORAL.LIQD PO ONE (10:34)
--- NOTE | 2021-02-18 10:34 | Emergency Department Report ---
ED General Adult HPI - General Chief complaint: Dental/Oral Stated complaint: Facial swelling. Dental pain. PUI?: No Time Seen by Provider: 02/18/21 10:02 Source: patient, RN notes reviewed, old records reviewed Mode of arrival: Ambulatory Limitations: No Limitations - History of Present Illness Initial comments: The patient is a 35-year-old gentleman. He presents to the ER with a complaint of nontraumatic left upper gum swelling, facial swelling, and dental pain. He was seen in this department yesterday for similar symptoms, and diagnosed with dental disease and possible trench mouth. He was diagnosed with clindamycin, antibiotic mouthwash, chlorhexidine, and pain medication. He states that his left-sided facial swelling is slightly worse. He denies headache, neck pain, chest pain, abdominal pain, shortness of breath, and stridor. He has sensitivity to hot and cold. He is asking to eat and drink. He states he has been taking his medications. -: Gradual, hour(s), days(s) Location: face, mouth Quality: aching Consistency: constant Improves with: rest Worsens with: movement (Movement and palpation) Associated Symptoms: denies other symptoms - Related Data Previous Rx's Medication Instructions Recorded Last Taken Type Azithromycin [Zithromax Z-CK] 1 dose PO DAILY 5 Days tab 02/04/17 Unknown Rx Benzonatate [Tessalon Perles] 100 mg PO Q8HR #30 capsule 02/04/17 Unknown Rx Ibuprofen [Motrin] 800 mg PO Q8HR PRN #30 tablet 02/04/17 Unknown Rx traMADoL [Ultram 50 MG tab] 50 mg PO Q6HR PRN #20 tablet 02/04/17 Unknown Rx Cyclobenzaprine [Flexeril] 10 mg PO QHS PRN #5 tablet 03/12/17 Unknown Rx Cetirizine HCl [ZyrTEC] 10 mg PO QAM 14 Days #14 capsule 08/14/17 Unknown Rx Fluticasone [Flonase] 1 spray NS QDAY 14 Days #1 bottle 08/14/17 Unknown Rx Ibuprofen [Motrin 600 MG tab] 600 mg PO Q8H PRN #12 tablet 08/14/17 Unknown Rx Ondansetron [Zofran Odt] 4 mg PO QAM PRN #12 tab.rapdis 08/14/17 Unknown Rx Acetaminophen/Codeine [Tylenol 1 tab PO Q6H PRN #14 tab 04/19/18 Unknown Rx /Codeine # 3 tab] Clindamycin [Clindamycin CAP] 300 mg PO Q8H 10 Days #30 cap 04/19/18 Unknown Rx Ibuprofen [Motrin] 800 mg PO Q8HR PRN #12 tablet 04/19/18 Unknown Rx Chlorhexidine Mouthwash [Peridex] 15 ml MM BID #473 ml 02/17/21 Unknown Rx Clindamycin [Clindamycin CAP] 300 mg PO Q8H #30 cap 02/17/21 Unknown Rx Naproxen 500 mg PO BID PRN #20 tablet 02/17/21 Unknown Rx Allergies Allergy/AdvReac Type Severity Reaction Status Date / Time peanut Allergy Severe tightening Verified 02/18/21 09:49 of airway shellfish derived Allergy Unknown Verified 02/18/21 09:49 Iodinated Contrast Media AdvReac Anaphylaxis Verified 02/18/21 09:49 ED Review of Systems ROS: Stated complaint: FACIAL SWELLING Other details as noted in HPI Constitutional: denies: fever ENT: dental pain, other (Facial congestion. Gum swelling.). denies: throat pain, hearing loss, congestion Respiratory: denies: cough Cardiovascular: denies: chest pain Gastrointestinal: denies: abdominal pain Neurological: denies: headache, weakness ED Past Medical Hx - Past Medical History Hx Hypertension: Yes Hx CVA: Yes (See above HPI) Hx Congestive Heart Failure: No Hx Diabetes: No Hx Asthma: Yes Hx COPD: No - Social History Smoking Status: Never Smoker Substance Use Type: Alcohol - Medications Home Medications: Home Medications Medication Instructions Recorded Confirmed Last Taken Type Azithromycin [Zithromax Z-CK] 1 dose PO DAILY 5 Days tab 02/04/17 Unknown Rx Benzonatate [Tessalon Perles] 100 mg PO Q8HR #30 capsule 02/04/17 Unknown Rx Ibuprofen [Motrin] 800 mg PO Q8HR PRN #30 tablet 02/04/17 Unknown Rx traMADoL [Ultram 50 MG tab] 50 mg PO Q6HR PRN #20 tablet 02/04/17 Unknown Rx Cyclobenzaprine [Flexeril] 10 mg PO QHS PRN #5 tablet 03/12/17 Unknown Rx Cetirizine HCl [ZyrTEC] 10 mg PO QAM 14 Days #14 capsule 05/14/18 Unknown Rx Fluticasone [Flonase] 1 spray NS QDAY 14 Days #1 bottle 08/14/17 Unknown Rx Ibuprofen [Motrin 600 MG tab] 600 mg PO Q8H PRN #12 tablet 08/14/17 Unknown Rx Ondansetron [Zofran Odt] 4 mg PO QAM PRN #12 tab.rapdis 08/14/17 Unknown Rx Acetaminophen/Codeine [Tylenol 1 tab PO Q6H PRN #14 tab 04/19/18 Unknown Rx /Codeine # 3 tab] Clindamycin [Clindamycin CAP] 300 mg PO Q8H 10 Days #30 cap 04/19/18 Unknown Rx Ibuprofen [Motrin] 800 mg PO Q8HR PRN #12 tablet 04/19/18 Unknown Rx Chlorhexidine Mouthwash [Peridex] 15 ml MM BID #473 ml 02/17/21 Unknown Rx Clindamycin [Clindamycin CAP] 300 mg PO Q8H #30 cap 02/17/21 Unknown Rx Naproxen 500 mg PO BID PRN #20 tablet 02/17/21 Unknown Rx ED Physical Exam - General Limitations: No Limitations General appearance: alert, in no apparent distress, obese - Head Head exam: Present: atraumatic, normocephalic - Eye Eye exam: Present: normal appearance, EOMI. Absent: nystagmus - ENT ENT exam: Present: mucous membranes moist (There is no stridor. The tongue is midline. There is no elevation of the base of the tongue. There is a small gingival abscess, near teeth 18 and 19. Patient has poor dentition. Numerous dental caries are noted.), normal external ear exam, other (There is left-sided superficial facial swelling. There is left-sided infraorbital swelling. EOMI.). Absent: normal exam, normal orophraynx - Neck Neck exam: Present: normal inspection, full ROM. Absent: tenderness, meningismus - Respiratory Respiratory exam: Present: normal lung sounds bilaterally. Absent: respiratory distress, wheezes, rales, rhonchi, stridor, decreased breath sounds - Cardiovascular Cardiovascular Exam: Present: regular rate, normal rhythm, normal heart sounds. Absent: bradycardia, tachycardia, irregular rhythm, systolic murmur, diastolic murmur, rubs, gallop - GI/Abdominal GI/Abdominal exam: Present: soft. Absent: distended, tenderness, guarding, rebound, rigid, pulsatile mass - Rectal Rectal exam: Present: deferred - Extremities Exam Extremities exam: Present: normal inspection, full ROM, other (2+ pulses noted in the bilateral upper and lower extremities. There is no palpable cord. negative Homans sign. Muscular compartments are soft. The pelvis is stable.). Absent: pedal edema, calf tenderness - Back Exam Back exam: Present: normal inspection, full ROM. Absent: tenderness, CVA tenderness (R), CVA tenderness (L), paraspinal tenderness, vertebral tenderness - Neurological Exam Neurological exam: Present: alert, oriented X3, other (No facial droop. Tongue midline. Extraocular movements intact bilaterally. Facial sensation intact to light touch in V1, V2, V3 distribution bilaterally. 5 and a 5 strength in 4 extremities. Sensation intact to light touch in 4 extremities.). Absent: motor sensory deficit - Psychiatric Psychiatric exam: Present: normal affect, normal mood - Skin Skin exam: Present: warm, dry, intact, normal color. Absent: rash ED Course Vital Signs 02/18/21 02/18/21 02/18/21 09:53 10:18 10:31 Temperature 98.4 F Pulse Rate 98 H Respiratory 20 Rate Blood Pressure 156/105 145/92 O2 Sat by Pulse 98 97 97 Oximetry 02/18/21 02/18/21 02/18/21 10:45 10:46 10:50 Temperature 98.0 F Pulse Rate Respiratory 18 18 18 Rate Blood Pressure 145/92 O2 Sat by Pulse 99 Oximetry 02/18/21 10:51 Temperature Pulse Rate Respiratory 18 Rate Blood Pressure O2 Sat by Pulse 97 Oximetry - Pulse Oximetry Interpretation Digit-Finger Initial Pulse Oximetry Readin O2 Sat by Pulse Oximetry: 99 Actions Taken: none ED Medical Decision Making - Lab Data Vital Signs 02/18/21 02/18/21 02/18/21 09:53 10:18 10:31 Temperature 98.4 F Pulse Rate 98 H Respiratory 20 Rate Blood Pressure 156/105 145/92 O2 Sat by Pulse 98 97 97 Oximetry 02/18/21 02/18/21 02/18/21 10:45 10:46 10:50 Temperature 98.0 F Pulse Rate Respiratory 18 18 18 Rate Blood Pressure 145/92 O2 Sat by Pulse 99 Oximetry 02/18/21 10:51 Temperature Pulse Rate Respiratory 18 Rate Blood Pressure O2 Sat by Pulse 97 Oximetry - Medical Decision Making Differential diagnosis, including but not limited to: Dental caries, gingivitis, gingival abscess, Assessment and plan: 35-year-old gentleman, with left-sided gingival abscess, dental caries, poor dentition, and reactive facial swelling. He is not stridulous, he is saturating at 100% on room air, he is protecting his airway, there is no neck pain or tenderness, the neck is supple, and he is saturating 100% on room air. He is in no acute distress. Patient will need to follow-up as soon as possible with an outpatient dentist or oral surgeon for definitive management. He is not emergently decompensated at this time, this presentation is not consistent with an allergic reaction, but rather reactive facial swelling, secondary to gingival abscess. At this point in time, the patient is suitable to follow-up as an outpatient, but he will have to do so expediently. I discussed this with the patient. He articulated understanding. All questions answered. Critical care attestation.: If time is entered above; I have spent that time in minutes in the direct care of this critically ill patient, excluding procedure time. ED Disposition Clinical Impression: Gingival abscess, Dental caries Disposition: HOME / SELF CARE / HOMELESS Is pt being admited?: No Does the pt Need Aspirin: No Condition: Good Additional Instructions: He is continue current outpatient medications, antibiotics and pain medication. [place] teeth twice daily. Floss on a daily basis. Avoid consumption of tobacco, smoke products and alcohol. Follow-up as soon as possible with an outpatient dentist. Patient found to have evidence of small left-sided maxillary gingival abscess, dental caries, and reactive facial swelling. Facial swelling likely coming from gingival abscess. Patient may follow-up with a local dentist. Patient may also follow-up with a dentist and/or oral surgeon at [facility]: [address] Monday: 11 AM - 4:30 PM Monday: 8 AM - 4:30 PM Every other : 8 AM - 4:30 PM Every other Monday: 8 AM - 4:30 PM (Main) (Appointments) Parking is available Please return to the emergency room right away with new pain, worsened pain, migration of pain, projectile vomiting, change in mental status, confusion, cortes bility to speak, inability to breathe, neck pain, neck tightness, neck swelling, or any new, worsened or different symptoms not present on the initial emergency room evaluation Referrals: [facility] [Outside] - 3-5 Days Forms: Work/School Release Form(ED)
[2021-02-18 12:15] VITALS: BP 139/77
== END 2021-02-18 12:15 | disposition home or self-care (01) ==
LOC: ED 09:46
DX: K05.319 Chronic periodontitis, localized, unspecified severity (principal); K04.7 Periapical abscess without sinus; I10 Essential (primary) hypertension; Z72.89 Other problems related to lifestyle; Z91.013 Allergy to seafood; Z91.010 Allergy to peanuts; Z91.041 Radiographic dye allergy status; Z79.899 Other long term (current) drug therapy
CPT/HCPCS: 99282

== ENCOUNTER 2021-12-04 11:26 | Emergency (ER) | payer MEDICAID ==
[2021-12-04 11:45] VITALS: BP 152/93
--- NOTE | 2021-12-04 12:44 | XRay Report ---
RIGHT ANKLE 3 VIEW(S) INDICATION / CLINICAL INFORMATION: PAIN /SWELLING COMPARISON: None available. FINDINGS: BONES / JOINT(S): No acute fracture or subluxation. No significant arthritis. No ankle joint effusion . Mild Mariana deformity. SOFT TISSUES: No significant abnormality. ADDITIONAL FINDINGS: None. IMPRESSION: 1. No acute findings. Signer Name: Yumiko Bustos MD Signed: 12/04/2021 12:40 PM Workstation Name: [id number]
[2021-12-04] MEDS ORDERED: traMADol 50 MG TAB PO ONE (13:05)
--- NOTE | 2021-12-04 13:15 | Emergency Department Report ---
ED Lower Extremity HPI - General Chief Complaint: Extremity Injury, Lower Stated Complaint: LEFT ANKLE INJURY Time Seen by Provider: 12/04/21 12:54 Source: patient Mode of arrival: Ambulatory Limitations: No Limitations - History of Present Illness Initial Comments: Pleasant 36-year-old male who presents for right ankle pain states he twisted it at work. 2 days ago. Pain is described as 5/10 exacerbated by weightbearing. Pain is relieved by offloading. Pain to the medial ankle. There is no abrasion laceration or bleeding. There is no gross deformity. Patient is partial weightbearing. MD Complaint: ankle injury - Related Data Previous Rx's Medication Instructions Recorded Last Taken Type Azithromycin [Zithromax Z-CK] 1 dose PO DAILY 5 Days tab 02/04/17 Unknown Rx Benzonatate [Tessalon Perles] 100 mg PO Q8HR #30 capsule 02/04/17 Unknown Rx Ibuprofen [Motrin] 800 mg PO Q8HR PRN #30 tablet 02/04/17 Unknown Rx traMADoL [Ultram 50 MG tab] 50 mg PO Q6HR PRN #20 tablet 02/04/17 Unknown Rx Cyclobenzaprine [Flexeril] 10 mg PO QHS PRN #5 tablet 03/12/17 Unknown Rx Cetirizine HCl [ZyrTEC] 10 mg PO QAM 14 Days #14 capsule 08/14/17 Unknown Rx Fluticasone [Flonase] 1 spray NS QDAY 14 Days #1 bottle 08/14/17 Unknown Rx Ibuprofen [Motrin 600 MG tab] 600 mg PO Q8H PRN #12 tablet 08/14/17 Unknown Rx Ondansetron [Zofran Odt] 4 mg PO QAM PRN #12 tab.rapdis 08/14/17 Unknown Rx Acetaminophen/Codeine [Tylenol 1 tab PO Q6H PRN #14 tab 04/19/18 Unknown Rx /Codeine # 3 tab] Clindamycin [Clindamycin CAP] 300 mg PO Q8H 10 Days #30 cap 04/19/18 Unknown Rx Ibuprofen [Motrin] 800 mg PO Q8HR PRN #12 tablet 04/19/18 Unknown Rx Chlorhexidine Mouthwash [Peridex] 15 ml MM BID #473 ml 02/17/21 Unknown Rx Clindamycin [Clindamycin CAP] 300 mg PO Q8H #30 cap 02/17/21 Unknown Rx Naproxen 500 mg PO BID PRN #20 tablet 02/17/21 Unknown Rx Naproxen 500 mg PO BID #30 tab 12/04/21 Unknown Rx Allergies Allergy/AdvReac Type Severity Reaction Status Date / Time peanut Allergy Severe tightening Verified 02/18/21 09:49 of airway shellfish derived Allergy Unknown Verified 02/18/21 09:49 Iodinated Contrast Media AdvReac Anaphylaxis Verified 02/18/21 09:49 ED Review of Systems ROS: Stated complaint: LEFT ANKLE INJURY Other details as noted in HPI Constitutional: denies: chills, fever Eyes: denies: eye pain, eye discharge, vision change ENT: denies: ear pain, throat pain Respiratory: denies: cough, shortness of breath, wheezing Cardiovascular: denies: chest pain, palpitations Endocrine: no symptoms reported Gastrointestinal: denies: abdominal pain, nausea, diarrhea Genitourinary: denies: urgency, dysuria Musculoskeletal: other (Right ankle pain). denies: back pain, joint swelling, arthralgia Skin: denies: rash, lesions Neurological: denies: headache, weakness, paresthesias Psychiatric: denies: anxiety, depression Hematological/Lymphatic: denies: easy bleeding, easy bruising ED Past Medical Hx - Past Medical History Hx Hypertension: Yes Hx CVA: Yes (See above HPI) Hx Congestive Heart Failure: No Hx Diabetes: No Hx Asthma: Yes Hx COPD: No - Social History Smoking Status: Never Smoker Substance Use Type: Alcohol - Medications Home Medications: Home Medications Medication Instructions Recorded Confirmed Last Taken Type Azithromycin [Zithromax Z-CK] 1 dose PO DAILY 5 Days tab 02/04/17 Unknown Rx Benzonatate [Tessalon Perles] 100 mg PO Q8HR #30 capsule 02/04/17 Unknown Rx Ibuprofen [Motrin] 800 mg PO Q8HR PRN #30 tablet 02/04/17 Unknown Rx traMADoL [Ultram 50 MG tab] 50 mg PO Q6HR PRN #20 tablet 02/04/17 Unknown Rx Cyclobenzaprine [Flexeril] 10 mg PO QHS PRN #5 tablet 03/12/17 Unknown Rx Cetirizine HCl [ZyrTEC] 10 mg PO QAM 14 Days #14 capsule 08/14/17 Unknown Rx Fluticasone [Flonase] 1 spray NS QDAY 14 Days #1 bottle 08/14/17 Unknown Rx Ibuprofen [Motrin 600 MG tab] 600 mg PO Q8H PRN #12 tablet 08/14/17 Unknown Rx Ondansetron [Zofran Odt] 4 mg PO QAM PRN #12 tab.rapdis 08/14/17 Unknown Rx Acetaminophen/Codeine [Tylenol 1 tab PO Q6H PRN #14 tab 04/19/18 Unknown Rx /Codeine # 3 tab] Clindamycin [Clindamycin CAP] 300 mg PO Q8H 10 Days #30 cap 04/19/18 Unknown Rx Ibuprofen [Motrin] 800 mg PO Q8HR PRN #12 tablet 04/19/18 Unknown Rx Chlorhexidine Mouthwash [Peridex] 15 ml MM BID #473 ml 02/17/21 Unknown Rx Clindamycin [Clindamycin CAP] 300 mg PO Q8H #30 cap 02/17/21 Unknown Rx Naproxen 500 mg PO BID PRN #20 tablet 02/17/21 Unknown Rx Naproxen 500 mg PO BID #30 tab 12/04/21 Unknown Rx ED Physical Exam - General Limitations: No Limitations General appearance: alert, in no apparent distress - Head Head exam: Present: normocephalic, normal inspection - Eye Eye exam: Present: normal appearance, EOMI Pupils: Present: normal accommodation - ENT ENT exam: Present: mucous membranes moist - Neck Neck exam: Present: normal inspection, full ROM. Absent: tenderness - Respiratory Respiratory exam: Present: normal lung sounds bilaterally. Absent: respiratory distress, wheezes - Cardiovascular Cardiovascular Exam: Present: regular rate, normal rhythm, normal heart sounds. Absent: systolic murmur, diastolic murmur, rubs, gallop - GI/Abdominal GI/Abdominal exam: Present: soft, normal bowel sounds. Absent: distended, tenderness, bruit, hernia - Rectal Rectal exam: Present: deferred - Extremities Exam Extremities exam: Present: full ROM - Expanded Lower Extremity Exam Right Ankle exam: Present: full ROM, tenderness, swelling (Right medial ankle swelling pain with rotation). Absent: abrasion, laceration, ecchymosis, deformity, crepidus, dislocation, erythema, anterior draw sign Foot/Toe exam: Present: full ROM, swelling. Absent: tenderness, abrasion, laceration, ecchymosis, deformity, crepidus, tenderness at base of 5th metatarsal Neuro vascular tendon exam: Absent: pulse deficit, motor deficit, sensory deficit, tendon deficit Gait: Positive: observed and limited by pain - Back Exam Back exam: Present: normal inspection, full ROM. Absent: paraspinal tenderness, vertebral tenderness - Neurological Exam Neurological exam: Present: alert, oriented X3, CN II-XII intact, reflexes normal. Absent: motor sensory deficit - Expanded Neurological Exam Expanded Patient oriented to: Present: person, place, time Speech: Present: fluid speech Motor strength exam: RUE: 5, LUE: 5, RLE: 5, LLE: 5 DTR: ankle (R): 1+, ankle (L): 1+ Best Eye Response (Eliana): (4) open spontaneously Best Motor Response (Eliana): (6) obeys commands Best Verbal Response (Eliana): (5) oriented [place] Total: 15 - Psychiatric Psychiatric exam: Present: normal affect, normal mood - Skin Skin exam: Present: warm, dry, intact, normal color. Absent: rash ED Course Vital Signs 12/04/21 11:44 Temperature 98.6 F Pulse Rate 94 H Respiratory 18 Rate Blood Pressure 152/93 [Right] O2 Sat by Pulse 98 Oximetry ED Lower Extremity MDM - Radiology Data Radiology results: report reviewed, image reviewed RIGHT ANKLE 3 VIEW(S) INDICATION / CLINICAL INFORMATION: PAIN /SWELLING COMPARISON: None available. FINDINGS: BONES / JOINT(S): No acute fracture or subluxation. No significant arthritis. No ankle joint effusion. Mild Mariana deformity. SOFT TISSUES: No significant abnormality. ADDITIONAL FINDINGS: None. IMPRESSION: 1. No acute findings. Signer Name: Yumiko Bustos MD Signed: 12/04/2021 12:40 PM Workstation Name: [id number] Transcribed By: DT Dictated By: Carlos Enrique Bustos MD Electronically Authenticated By: Carlos Enrique Bustos MD Signed Date/Time: 12/04/21 1240 DD/ 1239 TD/TT: - Medical Decision Making X-ray no fracture no subluxation no dislocation. Plan RICE therapy crutches, NSAIDs as needed pain follow-up with your doctor in 2 to 3 days. Return to emergency department should symptoms worsen. Patient verbalized agreement and understanding of the discharge plan. Patient DC'd home in stable condition at this time. Patient advises pain is improved. Critical care attestation.: If time is entered above; I have spent that time in minutes in the direct care of this critically ill patient, excluding procedure time. ED Disposition Clinical Impression: Ankle sprain Qualifiers: Encounter type: initial encounter Involved ligament of ankle: unspecified ligament Laterality: right Qualified Code(s): S93.401A - Sprain of unspecified l igament of right ankle, initial encounter Disposition: HOME / SELF CARE / HOMELESS Is pt being admited?: No Does the pt Need Aspirin: No Condition: Stable Instructions: Ankle Sprain, Phase I Rehab-SportsMed, How to Use Cold Therapy Additional Instructions: Take medications as prescribed, RICE therapy as directed. Follow-up with your doctor in 2 to 3 days. Return to emergency department should symptoms worsen. Prescriptions: Naproxen 500 mg PO BID #30 tab Referrals: CORINNE LOO MD [Staff Physician] - 3-5 Days Forms: Work/School Release Form(ED) Time of Disposition: 13:21
== END 2021-12-04 15:00 | disposition home or self-care (01) ==
LOC: ED 11:26
DX: S93.491A Sprain of other ligament of right ankle, initial encounter (principal); I10 Essential (primary) hypertension; J45.909 Unspecified asthma, uncomplicated; Z72.89 Other problems related to lifestyle; Z91.010 Allergy to peanuts; Z91.013 Allergy to seafood; Z91.041 Radiographic dye allergy status; Z79.899 Other long term (current) drug therapy; X50.1XXA Overexertion from prolonged static or awkward postures, initial encounter; Y93.89 Activity, other specified; Y92.89 Other specified places as the place of occurrence of the external cause; Y99.8 Other external cause status
CPT/HCPCS: 99283